=== PATIENT | female | born 1970 | race Caucasian/White ===

== ENCOUNTER → 2016-09-23 | Outpatient (CLI) | payer OTHER ==
[2016-03-31 07:57] VITALS: BP 138/92
[~2016-09-23] MED LIST: BUDE8.6S NS; BUDE8.6S6 NS; CETI10TA16 PO; HYDR-79 PO; MULT-245 PO; OXYC10TA PO; PRED1TAB3 PO
--- NOTE | 2016-09-23 10:33 | RAD ---
Indication restage nasal lymphoma. PET/CT was performed from the skull through the proximal thigh. CT was performed primarily for localization and attenuation purposes as opposed to primary diagnostic purposes. The blood sugar during the examination was 92. 14 mCi of FDG was administered. Note is made of a previous examination 06/24/2016. On CT the visualized brain appears unremarkable. There is significant opacification of the left maxillary sinus sphenoid sinus and mucosal thickening of the right maxillary sinus. Findings are suggestive of sinusitis. Clinical correlation advised. There is some soft tissue swelling of the nose. The chest is unremarkable. Significant hilar or mediastinal adenopathy is not seen on CT. There is no dominant parenchymal mass in either lung. The abdomen and pelvis are unremarkable. On PET scanning there is increased activity in the soft tissues about the nose. Maximum SUV is approximately 5. This may be on a post radiation basis. Recurrent lymphoma however cannot be excluded. The intensity of the uptake is greater than background blood flow uptake. Increased FDG uptake in the left maxillary sinus is likely on an infectious basis. There is now, in contrast to the previous examination, increased metabolic activity in a right hilar lymph node. This is not seen on the CT images. Maximum SUV is approximately 5.9. Metastatic adenopathy is not excluded. Slightly increased FDG activity is noted associated with the right nipple. This has been demonstrated on previous exam. FDG is physiologically distributed in the abdomen and pelvis. IMPRESSION: Increased FDG activity in the soft tissues about the nose may represent recurrent lymphoma or be the sequela of radiation therapy. (The uptake, however, is greater than background blood pool which is concerning for recurrent disease). New FDG avid right hilar lymph node. Metastatic disease is not excluded. Partial opacification of paranasal sinuses suggesting sinusitis.
== END | disposition home or self-care (01) ==
LOC: PETSC 07:16
PROVIDERS: ATTEND Radiology Radiation Oncology
DX: C84.Z0 Other mature T/NK-cell lymphomas, unspecified site (principal)
CPT/HCPCS: 78815; A9552

== ENCOUNTER 2016-12-06 08:21 | Observation (INO) | payer OTHER ==
[~2016-12-06] VITALS: Ht 167.6 cm; Wt 89.9 kg
[2016-12-06] MEDS ORDERED: IV NORMAL SALINE 1000ML BAG 1,000 ML IV SCH (08:50)
--- NOTE | 2016-12-06 08:53 | PHYS DOC ---
Adult General Chief Complaint Chief Complaint: GI PROBLEM HPI HPI Patient is a 46 year old female who presents with abdominal pain. She states it started around 6 AM this morning is sharp stabbing in nature and constant. Nothing makes it better or worse. She denies any nausea or vomiting. She had normal bowel movement this morning Review of Systems Review of Systems Constitutional: Denies fever or chills [] Eyes: Denies change in visual acuity, redness, or eye pain [] HENT: Denies nasal congestion or sore throat [] Respiratory: Denies cough or shortness of breath [] Cardiovascular: No additional information not addressed in HPI [] GI: Denies abdominal pain, nausea, vomiting, bloody stools or diarrhea [] : Denies dysuria or hematuria [] Musculoskeletal: Denies back pain or joint pain [] Integument: Denies rash or skin lesions [] Neurologic: Denies headache, focal weakness or sensory changes [] Endocrine: Denies polyuria or polydipsia [] Current Medications Current Medications Current Medications Medications (Trade) Dose Ordered Sig/Primo Start Time Stop Time Status Last Admin Dose Admin Info (Do NOT chart on this entry -- for MONITORING) 1 each PRN DAILY PRN 12/06/16 10:45 12/08/16 10:44 Iohexol (Omnipaque 300 Mg/ml) 75 ml 1X ONCE 12/06/16 10:45 12/06/16 10:46 DC 12/06/16 10:53 75 ML Morphine Sulfate 4 mg 4 mg PRN Q15MIN PRN 12/06/16 09:00 12/07/16 08:59 12/06/16 09:50 4 MG Multi-Ingredient Mouthwash/Gargle (Gi Cocktail Single Dose) 15 ml 1X ONCE 12/06/16 09:00 12/06/16 09:01 DC 12/06/16 09:00 15 ML Sodium Chloride (Iv Sodium Chloride 0.9% 1000ml Bag) 1,000 ml @ 100 mls/hr Q10H 12/06/16 08:50 12/06/16 18:49 12/06/16 09:48 100 MLS/HR Allergies Allergies Allergies Coded Allergies Type Severity Reaction Last Updated Verified No Known Drug Allergies 02/06/16 No Physical Exam Physical Exam Constitutional: Well developed, well nourished, no acute distress, non-toxic appearance. [] HENT: Normocephalic, atraumatic, bilateral external ears normal, oropharynx moist, no oral exudates, nose normal. [] Eyes: PERRLA, EOMI, conjunctiva normal, no discharge. [] Neck: Normal range of motion, no tenderness, supple, no stridor. [] Cardiovascular:Heart rate regular rhythm, no murmur [] Lungs & Thorax: Bilateral breath sounds clear to auscultation [] Abdomen: Bowel sounds normal, soft, tender to palpation in the epigastric area, no masses, no pulsatile masses. [] Skin: Warm, dry, no erythema, no rash. [] Back: No tenderness, no CVA tenderness. [] Extremities: No tenderness, no cyanosis, no clubbing, ROM intact, no edema. [] Neurologic: Alert and oriented X 3, normal motor function, normal sensory function, no focal deficits noted. [] Psychologic: Affect normal, judgement normal, mood normal. [] Current Patient Data Vital Signs Vital Signs Date Time Temp Pulse Resp B/P Pulse Ox O2 Delivery O2 Flow Rate FiO2 12/06/16 12:35 79 138/78 97 12/06/16 09:50 20 Room Air 12/06/16 08:45 98.3 98.3 Lab Values Laboratory Tests Test 12/06/16 09:34 12/06/16 09:41 White Blood Count 13.2x10^3/uL (4.0-11.0) H Red Blood Count 4.64x10^6/uL (3.50-5.40) Hemoglobin 14.9g/dL (12.0-15.5) Hematocrit 42.8% (36.0-47.0) Mean Corpuscular Volume 92fL (79-100) Mean Corpuscular Hemoglobin 32pg (25-35) Mean Corpuscular Hemoglobin Concent 35g/dL (31-37) Red Cell Distribution Width 13.8% (11.5-14.5) Platelet Count 259x10^3/uL (140-400) Neutrophils (%) (Auto) 88% (31-73) H Lymphocytes (%) (Auto) 6% (24-48) L Monocytes (%) (Auto) 6% (0-9) Eosinophils (%) (Auto) 1% (0-3) Basophils (%) (Auto) 1% (0-3) Neutrophils # (Auto) 11.5x10^3uL (1.8-7.7) H Lymphocytes # (Auto) 0.7x10^3/uL (1.0-4.8) L Monocytes # (Auto) 0.7x10^3/uL (0.0-1.1) Eosinophils # (Auto) 0.1x10^3/uL (0.0-0.7) Basophils # (Auto) 0.1x10^3/uL (0.0-0.2) Segmented Neutrophils % 75% (35-66) H Band Neutrophils % 12% (0-9) H Lymphocytes % 6% (24-48) L Atypical Lymphocytes % (Manual) 1% (0-0) H Monocytes % 6% (0-10) Platelet Estimate Adequate (ADEQUATE) Prothrombin Time 13.1SEC (11.7-14.0) Prothrombin Time INR 1.1 (0.8-1.1) PTT 27SEC (24-38) Sodium Level 140mmol/L (136-145) Potassium Level 3.6mmol/L (3.5-5.1) Chloride Level 102mmol/L (98-107) Carbon Dioxide Level 28mmol/L (21-32) Anion Gap 10 (6-14) Blood Urea Nitrogen 8mg/dL (7-20) Creatinine 0.9mg/dL (0.6-1.0) Estimated GFR (Cockcroft-Gault) 67.7 Glucose Level 108mg/dL (70-99) H Calcium Level 9.1mg/dL (8.5-10.1) Total Bilirubin 0.9mg/dL (0.2-1.0) Direct Bilirubin 0.5mg/dL (0.0-0.2) H Aspartate Amino Transferase (AST) 83U/L (15-37) H Alanine Aminotransferase (ALT) 51U/L (14-59) Alkaline Phosphatase 89U/L (46-116) Creatine Kinase 48U/L (26-192) Creatine Kinase MB (Mass) < 0.5ng/mL (0.0-3.6) Creatine Kinase MB Relative Index % (0-4) Total Protein 7.2g/dL (6.4-8.2) Albumin 3.8g/dL (3.4-5.0) Lipase 179U/L (73-393) Urine Collection Type Void Urine Color Yellow Urine Clarity Clear Urine pH 6.0 Urine Specific [place] 1.020 Urine Protein Negativemg/dL (NEG-TRACE) Urine Glucose (UA) Negativemg/dL (NEG) Urine Ketones (Stick) Negativemg/dL (NEG) Urine Blood Negative (NEG) Urine Nitrite Negative (NEG) Urine Bilirubin Negative (NEG) Urine Urobilinogen Dipstick 1.0mg/dL (0.2 mg/dL) Urine Leukocyte Esterase Negative (NEG) Urine RBC 1-2/HPF (0-2) Urine WBC Rare/HPF (0-4) Urine Squamous Epithelial Cells Mod/LPF Urine Bacteria Few/HPF (0-FEW) Urine Hyaline Casts Few/HPF Urine Mucus Marked/LPF Urine Opiates Screen Pos (NEG) Urine Methadone Screen Neg (NEG) Urine Barbiturates Neg (NEG) Urine Phencyclidine Screen Neg (NEG) Urine Amphetamine/Methamphetamine Neg (NEG) Urine Benzodiazepines Screen Neg (NEG) Urine Cocaine Screen Neg (NEG) Urine Cannabinoids Screen Neg (NEG) Urine Ethyl Alcohol Neg (NEG) Laboratory Tests 12/06/16 09:34 Laboratory Tests 12/06/16 09:34 EKG EKG EKG shows normal sinus rhythm 3-[address] elevations or T-wave inversions, normal axis, as interpreted by me. Radiology/Procedures Radiology/Procedures [facility] [address] [place] [address] IMAGING REPORT Signed PATIENT: NIKKO DE LA TORRE ACCOUNT: [id number] : 1970 LOCATION: ER AGE: 46 SEX: F EXAM STATUS: REG ER ORD. PHYSICIAN: KYRIE MCKENNA MD REASON: abd pain PROCEDURE: ACUTE ABDOMEN SERIES Abdomen series with chest, 3 views, 12/06/2016: History: Upper abdominal pain The abdominal gas pattern is unremarkable without evidence of obstruction. No free air is seen in the abdomen. There is no evidence of organomegaly or abnormal abdominal calcification. Mild scattered spurs are present in the spine. The heart size and pulmonary vascularity are normal. The lungs are clear. There is no evidence of pleural fluid. IMPRESSION: No acute abdominal abnormality is detected. DICTATED and SIGNED BY: TOÑA RODRIGUEZ MD DATE: 12/06/1625 CC: KYRIE MCKENNA MD; CLAUDINE ANDREWS ~ [facility] [address] [place] [address] IMAGING REPORT Signed PATIENT: NIKKO DE LA TORRE ACCOUNT: [id number] : 1970 LOCATION: ER AGE: 46 SEX: F EXAM STATUS: REG ER ORD. PHYSICIAN: KYRIE MCKENNA MD REASON: abd pain PROCEDURE: CT ABD PELV W/ IV CONTRST ONLY CT of the abdomen and pelvis with contrast, 12/06/2016: History: Abdominal pain, nausea and vomiting Multidetector CT imaging was performed following an IV bolus injection of iodinated contrast material. No oral contrast material was administered for this study. No hepatic abnormality is detected. There is low density mural thickening involving the gallbladder. No dense gallstones are seen. The pancreas is unremarkable. The spleen is of normal size. The kidneys show no evidence of obstruction. No adrenal abnormality is detected. There is mild aortoiliac calcific plaquing without evidence of aneurysm. No abdominal or pelvic adenopathy is seen. The uterus is unremarkable. The bowel loops are not dilated. A few scattered colonic diverticula are seen. No paracolonic inflammatory process is evident. The appendix is unremarkable. No free fluid or free air is seen in the abdomen or pelvis. IMPRESSION: 1. Moderate gallbladder mural thickening which can be due to a variety of causes including cholecystitis, hypoproteinemia, liver disease or a renal disease. Gallbladder sonography may be useful for further evaluation. 2. Mild colonic diverticulosis. PQRS Compliance Statement: One or more of the following individualized dose reduction techniques were utilized for this examination: 1. Automated exposure control 2. Adjustment of the mA and/or kV according to patient size 3. Use of iterative reconstruction technique DICTATED and SIGNED BY: TOÑA RODRIGUEZ MD DATE: 12/06/16 113 CC: KYRIE MCKENNA MD; CLAUDINE ANDREWS ~ [facility] [address] [place], [place] [id number] IMAGING REPORT Signed PATIENT: NIKKO DE LA TORRE ACCOUNT: [id number] : 1970 LOCATION: ER AGE: 46 SEX: F EXAM STATUS: REG ER ORD. PHYSICIAN: KYRIE MCKENNA MD REASON: right upper quadrant pain PROCEDURE: ABDOMEN LTD Right upper quadrant abdominal ultrasound, 12/06/2016: History: Right upper quadrant pain The gallbladder is not well distended. There was echogenic foci along the posterior wall of the gallbladder with posterior acoustic shadowing compatible with gallstones. The gallbladder wall is thickened measuring 4-5 mm. The common hepatic duct is of normal size measuring 4 mm. No intrahepatic bile duct dilatation is evident. No hepatic mass is delineated. The visualized portions of the pancreas and right kidney are unremarkable. IMPRESSION: Cholelithiasis with gallbladder wall thickening. This mural thickening can be due to a variety of causes including cholecystitis, hypoproteinemia, liver disease or renal disease. DICTATED and SIGNED BY: TOÑA RODRIGUEZ MD DATE: 12/06/16 1302 CC: KYRIE MCKENNA MD; CLAUDINE ANDREWS ~ Impressions: Abdominal pain Course & Med Decision Making Course & Med Decision Making Pertinent Labs and Imaging studies reviewed. (See chart for details) Patient had pain in the epigastric area in addition to an ultrasound that shows gallbladder wall thickening at 3-4 mm. She does have bands on her CBC she does not have a fever. So Dr. Almonte once Zosyn started. I have placed a consult for surgery and admitted to Dr. Fonseca. Joyce Disclaimer [employer] Disclaimer This electronic medical record was generated, in whole or in part, using a voice recognition dictation system. Departure Departure Impression: Primary Impression: Abdominal pain Disposition: ADMITTED INPATIENT Admitting Physician: Billy Fonseca Condition: STABLE Referrals: CLAUDINE ANDREWS (PCP) KYRIE MCKENNA MD Dec 06, 2016 08:53
[2016-12-06] MEDS ORDERED: LIDO:MAALOX:DONNATAL 1:1:1 15 ML SINGLE DOSE SWSW ONE (09:00)
[2016-12-06] MEDS ORDERED: MORPHINE SULFATE 4 MG/ML DISP.SYRIN. IV/SQ PRN (09:00)
--- NOTE | 2016-12-06 09:29 | RAD ---
Abdomen series with chest, 3 views, 12/06/2016: History: Upper abdominal pain The abdominal gas pattern is unremarkable without evidence of obstruction. No free air is seen in the abdomen. There is no evidence of organomegaly or abnormal abdominal calcification. Mild scattered spurs are present in the spine. The heart size and pulmonary vascularity are normal. The lungs are clear. There is no evidence of pleural fluid. IMPRESSION: No acute abdominal abnormality is detected.
[2016-12-06 10:07] LABS: BASO # 0.1 x10^3/uL (0.0-0.2); BASO % 1 % (0-3); EOS % 1 % (0-3); HEMATOCRIT 42.8 % (36.0-47.0); HEMOGLOBIN 14.9 g/dL (12.0-15.5); LYMPH # 0.7 x10^3/uL (1.0-4.8); LYMPH % 6 % (24-48); MEAN CORPUSCULAR HEMOGLOBIN 32 pg (25-35); MEAN CORPUSCULAR HGB CONC 35 g/dL (31-37); MEAN CORPUSCULAR VOLUME 92 fL (79-100); MONO % 6 % (0-9); NEUT % 88 % (31-73); PLATELET COUNT 259 x10^3/uL (140-400); RED BLOOD COUNT 4.64 x10^6/uL (3.50-5.40); RED CELL DISTRIBUTION WIDTH 13.8 % (11.5-14.5); WHITE BLOOD COUNT 13.2 x10^3/uL (4.0-11.0)
[2016-12-06 10:08] LABS: BILIRUBIN,URINE NEGATIVE (NEG); GLUCOSE,URINE NEGATIVE (NEG); NITRITE,URINE NEGATIVE (NEG); PROTEIN,URINE NEGATIVE (NEG-TRACE)
[2016-12-06 10:14] LABS: INR 1.1 (0.8-1.1); PROTHROMBIN TIME PATIENT 13.1 SEC (11.7-14.0)
[2016-12-06 10:15] LABS: BARBITURATES NEG (NEG); BENZODIAZEPINES NEG (NEG); CANNABINOIDS NEG (NEG); COCAINE NEG (NEG); METHADONE NEG (NEG); OPIATES POS (NEG); PHENCYCLIDINE NEG (NEG)
[2016-12-06 10:18] LABS: CALCIUM 9.1 mg/dL (8.5-10.1); CREATININE 0.9 mg/dL (0.6-1.0); GFR 67.7; POTASSIUM 3.6 mmol/L (3.5-5.1)
[2016-12-06 10:20] LABS: ETHANOL, URINE NEG (NEG)
[2016-12-06 10:21] LABS: BACTERIA,URINE FEW /HPF (0-FEW); SQUAMOUS EPITHELIAL CELL,UR MOD /LPF; WBC,URINE RARE /HPF (0-4)
[2016-12-06 10:24] LABS: ALBUMIN 3.8 g/dL (3.4-5.0); DIRECT BILIRUBIN 0.5 mg/dL (0.0-0.2); TOTAL BILIRUBIN 0.9 mg/dL (0.2-1.0); TOTAL PROTEIN 7.2 g/dL (6.4-8.2)
[2016-12-06 10:35] LABS: CKMB MASS < 0.5 ng/mL (0.0-3.6); CREATINE KINASE 48 U/L (26-192)
[2016-12-06] MEDS ORDERED: IOHEXOL 300 MG/ML 75 ML VIAL IV ONE (10:45)
[2016-12-06] MEDS ORDERED: CONTRAST GIVEN MC PRN (10:45)
--- NOTE | 2016-12-06 10:50 | EKG ---
[facility] [address] [place] [address] Test Date: 2016-12-06 Test Time: 09:14:35 Pat Name: NIKKO DE LA TORRE Department: Room: Gender: F Rating Officer: : 1970 Requested By: KYRIE MCKENNA Order Number: [id number] Reading MD: Boris Braswell Measurements Intervals [place] Rate: 67 P: 0 HI: 152 QRS: 22 QRSD: 100 T: 27 QT: 386 QTc: 411 Interpretive Statements SINUS RHYTHM Electronically Signed On 12-07-2016 15:40:13 CDT by Boris Braswell
[2016-12-06 10:54] LABS: PLT ESTIMATE ADEQUATE (ADEQUATE)
--- NOTE | 2016-12-06 11:40 | RAD ---
CT of the abdomen and pelvis with contrast, 12/06/2016: History: Abdominal pain, nausea and vomiting Multidetector CT imaging was performed following an IV bolus injection of iodinated contrast material. No oral contrast material was administered for this study. No hepatic abnormality is detected. There is low density mural thickening involving the gallbladder. No dense gallstones are seen. The pancreas is unremarkable. The spleen is of normal size. The kidneys show no evidence of obstruction. No adrenal abnormality is detected. There is mild aortoiliac calcific plaquing without evidence of aneurysm. No abdominal or pelvic adenopathy is seen. The uterus is unremarkable. The bowel loops are not dilated. A few scattered colonic diverticula are seen. No paracolonic inflammatory process is evident. The appendix is unremarkable. No free fluid or free air is seen in the abdomen or pelvis. IMPRESSION: 1. Moderate gallbladder mural thickening which can be due to a variety of causes including cholecystitis, hypoproteinemia, liver disease or a renal disease. Gallbladder sonography may be useful for further evaluation. 2. Mild colonic diverticulosis. PQRS Compliance Statement: One or more of the following individualized dose reduction techniques were utilized for this examination: 1. Automated exposure control 2. Adjustment of the mA and/or kV according to patient size 3. Use of iterative reconstruction technique
--- NOTE | 2016-12-06 13:09 | RAD ---
Right upper quadrant abdominal ultrasound, 12/06/2016: History: Right upper quadrant pain The gallbladder is not well distended. There was echogenic foci along the posterior wall of the gallbladder with posterior acoustic shadowing compatible with gallstones. The gallbladder wall is thickened measuring 4-5 mm. The common hepatic duct is of normal size measuring 4 mm. No intrahepatic bile duct dilatation is evident. No hepatic mass is delineated. The visualized portions of the pancreas and right kidney are unremarkable. IMPRESSION: Cholelithiasis with gallbladder wall thickening. This mural thickening can be due to a variety of causes including cholecystitis, hypoproteinemia, liver disease or renal disease.
[2016-12-06] MEDS ORDERED: MORPHINE SULFATE 4 MG/ML DISP.SYRIN. IV PRN (14:00)
[2016-12-06] MEDS ORDERED: PIPERACILLIN/TAZOBACTAM 3.375 GM in IV NORMAL SALINE 50ML 50 ML IV ONE (14:00)
[2016-12-06] MEDS ORDERED: ONDANSETRON PF 4 MG/2 ML VIAL. IV PRN (14:00)
--- NOTE | 2016-12-06 14:25 | PDOC2 ---
LAI GARCIA BUSINESS ACCOUNT MANAGER 12/06/16 1425: CONSULT Date of Consult Date of Consult DATE: 12/06/16 TIME: 14:19 Reason for Consult Reason for Consult: abdominal pain Referring Physician Referring Physician: ER Identification/Chief Complaint Chief Complaint abdominal pain Source Source: Chart review, Patient History of Present Illness Reason for Visit: Acute onset of RUQ pain with radiation to back starting this morning. She had similar pain about a week ago, however resolved in about a day. No aggravated factors, does not feel related to eating(had BLT for dinner last night). Currently pain is greatly improved, no associated nausea or emesis She is very hungry Past Medical History Past Medical History denies any medical history Past Surgical History Past Surgical History: Other (sinus) Social History 1 pack per day ALCOHOL: rare Drugs: None Lives: Alone Current Problem List Problem List Problems Medical Problems: (1) Abdominal pain Status: Acute Current Medications Current Medications Current Medications Multi-Ingredient Mouthwash/Gargle (Gi Cocktail Single Dose) 15 ml 1X ONCE SWSW Last administered on 12/06/16 09:00; Start 12/06/16 at 09:00; Stop 12/06/16 at 09:01; Status DC Morphine Sulfate 4 mg 4 mg PRN Q15MIN PRN IV/SQ PAIN GREATER THAN 3/10 Last administered on 12/06/16 09:50; Start 12/06/16 at 09:00; Stop 12/07/16 at 08:59 Sodium Chloride (Iv Sodium Chloride 0.9% 1000ml Bag) 1,000 ml @ 100 mls/hr Q10H IV Last administered on 12/06/16 09:48; Start 12/06/16 at 08:50; Stop at 18:49 Iohexol (Omnipaque 300 Mg/ml) 75 ml 1X ONCE IV Last administered on 12/06/16 10:53; Start 12/06/16 at 10:45; Stop 12/06/16 at 10:46; Status DC Info (Do NOT chart on this entry -- for MONITORING) 1 each PRN DAILY PRN MC SEE COMMENTS; Start 12/06/16 at 10:45; Stop 12/08/16 at 10:44 Ondansetron HCl (Zofran) 4 mg PRN Q8HRS PRN IV NAUSEA/VOMITING; Start 12/06/16 at 14:00; Stop 12/07/16 at 13:59 Morphine Sulfate 4 mg 4 mg PRN Q2HR PRN IV PAIN; Start 12/06/16 at 14:00; Stop 12/07/16 at 13:59 Piperacillin Sod/ Tazobactam Sod/ Sodium Chloride (Zosyn/Iv Sodium Chloride 0.9 % 50ml) 50 ml @ 100 mls/hr 1X ONCE IV ; Start 12/06/16 at 14:00; Stop at 14:29 Active Scripts Active Oxycodone Hcl 10 Mg Tablet 10 Mg PO EVERY 6 HRS PRN Reported Hydrocodone-Ibuprofen 7.5-200 (Hydrocodone/Ibuprofen) 1 Each Tablet 1 Tab PO PRN Q6HRS PRN Budesonide Nasal Dilley (Budesonide) 8.6 Gm Dilley.pump 1 Dilley NS QODAY Multi Vitamin Daily (Multivitamin) 1 Each Tablet 1 Each PO DAILY Allergies Allergies: Coded Allergies: No Known Drug Allergies (Unverified , 02/06/16) ROS General: No: Chills, Other (fevers) PSYCHOLOGICAL ROS: No: Anxiety, Depression Eyes: No Blurry vision, No Double vision HEENT: No: Heacaches, Sore Throat Hematological and Lymphatic: No: Bleeding Problems, Blood Clots Respiratory: No: Cough, Shortness of breath Cardiovascular: No Chest Pain, No Palpitations Gastrointestinal: Yes Other (see hpi) Genitourinary: No Dysuria, No Hematuria Musculoskeletal: No Joint Pain, No Muscle Pain Neurological: No Confusion, No Numbness/Tingling Skin: No Pruritus, No Rash Physical Exam General: Alert, Oriented X3, Cooperative, No acute distress HEENT: PERRLA, Mucous membr. moist/pink Lungs: Clear to auscultation, Normal air movement Heart: Regular rate, Normal S1, Normal S2, No murmurs Abdomen: Soft, Other (ND, mild tenderness to RUQ, epigastric) Extremities: No clubbing, No cyanosis Skin: No rashes, No breakdown Neuro: Normal speech, Sensation intact Psych/Mental Status: Mental status NL, Mood NL MUSCULOSKELETAL: No deformity, No swelling Vitals VITALS Vital Signs Date Time Temp Pulse Resp B/P Pulse Ox O2 Delivery O2 Flow Rate FiO2 12/06/16 12:35 79 138/78 97 12/06/16 09:50 20 Room Air 12/06/16 08:45 98.3 98.3 Labs Labs Laboratory Tests Test 12/06/16 09:34 12/06/16 09:41 White Blood Count 13.2x10^3/uL (4.0-11.0) Red Blood Count 4.64x10^6/uL (3.50-5.40) Hemoglobin 14.9g/dL (12.0-15.5) Hematocrit 42.8% (36.0-47.0) Mean Corpuscular Volume 92fL (79-100) Mean Corpuscular Hemoglobin 32pg (25-35) Mean Corpuscular Hemoglobin Concent 35g/dL (31-37) Red Cell Distribution Width 13.8% (11.5-14.5) Platelet Count 259x10^3/uL (140-400) Neutrophils (%) (Auto) 88% (31-73) Lymphocytes (%) (Auto) 6% (24-48) Monocytes (%) (Auto) 6% (0-9) Eosinophils (%) (Auto) 1% (0-3) Basophils (%) (Auto) 1% (0-3) Neutrophils # (Auto) 11.5x10^3uL (1.8-7.7) Lymphocytes # (Auto) 0.7x10^3/uL (1.0-4.8) Monocytes # (Auto) 0.7x10^3/uL (0.0-1.1) Eosinophils # (Auto) 0.1x10^3/uL (0.0-0.7) Basophils # (Auto) 0.1x10^3/uL (0.0-0.2) Segmented Neutrophils % 75% (35-66) Band Neutrophils % 12% (0-9) Lymphocytes % 6% (24-48) Atypical Lymphocytes % (Manual) 1% (0-0) Monocytes % 6% (0-10) Platelet Estimate Adequate (ADEQUATE) Prothrombin Time 13.1SEC (11.7-14.0) Prothromb Time International Ratio 1.1 (0.8-1.1) Activated Partial Thromboplast Time 27SEC (24-38) Sodium Level 140mmol/L (136-145) Potassium Level 3.6mmol/L (3.5-5.1) Chloride Level 102mmol/L (98-107) Carbon Dioxide Level 28mmol/L (21-32) Anion Gap 10 (6-14) Blood Urea Nitrogen 8mg/dL (7-20) Creatinine 0.9mg/dL (0.6-1.0) Estimated GFR (Cockcroft-Gault) 67.7 Glucose Level 108mg/dL (70-99) Calcium Level 9.1mg/dL (8.5-10.1) Total Bilirubin 0.9mg/dL (0.2-1.0) Direct Bilirubin 0.5mg/dL (0.0-0.2) Aspartate Amino Transf (AST/SGOT) 83U/L (15-37) Alanine Aminotransferase (ALT/SGPT) 51U/L (14-59) Alkaline Phosphatase 89U/L (46-116) Creatine Kinase 48U/L (26-192) Creatine Kinase MB (Mass) < 0.5ng/mL (0.0-3.6) Creatine Kinase MB Relative Index % (0-4) Total Protein 7.2g/dL (6.4-8.2) Albumin 3.8g/dL (3.4-5.0) Lipase 179U/L (73-393) Urine Collection Type Void Urine Color Yellow Urine Clarity Clear Urine pH 6.0 Urine Specific [place] 1.020 Urine Protein Negativemg/dL (NEG-TRACE) Urine Glucose (UA) Negativemg/dL (NEG) Urine Ketones (Stick) Negativemg/dL (NEG) Urine Blood Negative (NEG) Urine Nitrite Negative (NEG) Urine Bilirubin Negative (NEG) Urine Urobilinogen Dipstick 1.0mg/dL (0.2 mg/dL) Urine Leukocyte Esterase Negative (NEG) Urine RBC 1-2/HPF (0-2) Urine WBC Rare/HPF (0-4) Urine Squamous Epithelial Cells Mod/LPF Urine Bacteria Few/HPF (0-FEW) Urine Hyaline Casts Few/HPF Urine Mucus Marked/LPF Urine Opiates Screen Pos (NEG) Urine Methadone Screen Neg (NEG) Urine Barbiturates Neg (NEG) Urine Phencyclidine Screen Neg (NEG) Urine Amphetamine/Methamphetamine Neg (NEG) Urine Benzodiazepines Screen Neg (NEG) Urine Cocaine Screen Neg (NEG) Urine Cannabinoids Screen Neg (NEG) Urine Ethyl Alcohol Neg (NEG) Laboratory Tests Test 12/06/16 09:34 12/06/16 09:41 White Blood Count 13.2x10^3/uL (4.0-11.0) Red Blood Count 4.64x10^6/uL (3.50-5.40) Hemoglobin 14.9g/dL (12.0-15.5) Hematocrit 42.8% (36.0-47.0) Mean Corpuscular Volume 92fL (79-100) Mean Corpuscular Hemoglobin 32pg (25-35) Mean Corpuscular Hemoglobin Concent 35g/dL (31-37) Red Cell Distribution Width 13.8% (11.5-14.5) Platelet Count 259x10^3/uL (140-400) Neutrophils (%) (Auto) 88% (31-73) Lymphocytes (%) (Auto) 6% (24-48) Monocytes (%) (Auto) 6% (0-9) Eosinophils (%) (Auto) 1% (0-3) Basophils (%) (Auto) 1% (0-3) Neutrophils # (Auto) 11.5x10^3uL (1.8-7.7) Lymphocytes # (Auto) 0.7x10^3/uL (1.0-4.8) Monocytes # (Auto) 0.7x10^3/uL (0.0-1.1) Eosinophils # (Auto) 0.1x10^3/uL (0.0-0.7) Basophils # (Auto) 0.1x10^3/uL (0.0-0.2) Segmented Neutrophils % 75% (35-66) Band Neutrophils % 12% (0-9) Lymphocytes % 6% (24-48) Atypical Lymphocytes % (Manual) 1% (0-0) Monocytes % 6% (0-10) Platelet Estimate Adequate (ADEQUATE) Prothrombin Time 13.1SEC (11.7-14.0) Prothromb Time International Ratio 1.1 (0.8-1.1) Activated Partial Thromboplast Time 27SEC (24-38) Sodium Level 140mmol/L (136-145) Potassium Level 3.6mmol/L (3.5-5.1) Chloride Level 102mmol/L (98-107) Carbon Dioxide Level 28mmol/L (21-32) Anion Gap 10 (6-14) Blood Urea Nitrogen 8mg/dL (7-20) Creatinine 0.9mg/dL (0.6-1.0) Estimated GFR (Cockcroft-Gault) 67.7 Glucose Level 108mg/dL (70-99) Calcium Level 9.1mg/dL (8.5-10.1) Total Bilirubin 0.9mg/dL (0.2-1.0) Direct Bilirubin 0.5mg/dL (0.0-0.2) Aspartate Amino Transf (AST/SGOT) 83U/L (15-37) Alanine Aminotransferase (ALT/SGPT) 51U/L (14-59) Alkaline Phosphatase 89U/L (46-116) Creatine Kinase 48U/L (26-192) Creatine Kinase MB (Mass) < 0.5ng/mL (0.0-3.6) Creatine Kinase MB Relative Index % (0-4) Total Protein 7.2g/dL (6.4-8.2) Albumin 3.8g/dL (3.4-5.0) Lipase 179U/L (73-393) Urine Collection Type Void Urine Color Yellow Urine Clarity Clear Urine pH 6.0 Urine Specific [place] 1.020 Urine Protein Negativemg/dL (NEG-TRACE) Urine Glucose (UA) Negativemg/dL (NEG) Urine Ketones (Stick) Negativemg/dL (NEG) Urine Blood Negative (NEG) Urine Nitrite Negative (NEG) Urine Bilirubin Negative (NEG) Urine Urobilinogen Dipstick 1.0mg/dL (0.2 mg/dL) Urine Leukocyte Esterase Negative (NEG) Urine RBC 1-2/HPF (0-2) Urine WBC Rare/HPF (0-4) Urine Squamous Epithelial Cells Mod/LPF Urine Bacteria Few/HPF (0-FEW) Urine Hyaline Casts Few/HPF Urine Mucus Marked/LPF Urine Opiates Screen Pos (NEG) Urine Methadone Screen Neg (NEG) Urine Barbiturates Neg (NEG) Urine Phencyclidine Screen Neg (NEG) Urine Amphetamine/Methamphetamine Neg (NEG) Urine Benzodiazepines Screen Neg (NEG) Urine Cocaine Screen Neg (NEG) Urine Cannabinoids Screen Neg (NEG) Urine Ethyl Alcohol Neg (NEG) Assessment/Plan Assessment/Plan cholelithiasis with mural thickening, leukocytosis-c/w cholecystitis tobaccoism obesity, BMI 32.9 agree with abx will plan for lap isidra in AM, can try anthony, npo at [place] PRABHU HENRY MD 12/06/16 2313: CONSULT Allergies Allergies: Coded Allergies: No Known Drug Allergies (Unverified , 02/06/16) Assessment/Plan Assessment/Plan Reviewed, agree with above LAI GARCIA APRN Dec 06, 2016 14:25 PRABHU HENRY MD Dec 06, 2016 23:13
--- NOTE | 2016-12-06 14:50 | ACF ---
Admission Forms Criteria ABDOMINAL PAIN Clinical Indications for Admission to Inpatient Care (Place 'X' for any and all applicable criteria): Admission is indicated for ANY ONE of the following(1)(2)(3)(4)(5): [X]I. Inpatient admission required rather than observation care (Also use Abdominal Pain: Observation Care, as appropriate) because of ANY ONE of the following: [X]a) Severe pain requiring acute inpatient management [ ]b) Identification of etiology/finding that requires inpatient care (eg, aortic dissection, free air) [ ]c) Absent bowel sounds with complete ileus(6) [ ]d) Suspected toxic megacolon [ ]e) Severe electrolyte abnormalities requiring inpatient care [ ]f) High fever or infection requiring inpatient admission as indicated by ANY ONE of following(7)(8): [ ] i) Appropriate outpatient or observational care antimicrobial treatment unavailable, not effective, or not feasible [ ] ii) Documented bacteremia [ ] iii) Temperature > 104.9 degrees F (oral) [ ] iv) T >103.1 F (oral) or < 96.8 F(rectal) that does not respond to all emergency treatment measures [ ]g) Signs of intestinal obstruction [B] [ ]h) Hemodynamic instability [ ]i) IV fluid to replace significant ongoing losses (greater than 3 L/m2 per day) (12)(13) [ ]j) Percutaneous or open drainage (eg, abscess, biliary tract ) procedures [ ]k) Parenteral nutrition regimen that must be implemented on inpatient basis [ ]l) Other condition,treatment or monitoring requiring inpatient admission. [ ]II. Peritoneal signs present [ ]III. Surgery needed that cannot be performed on an ambulatory basis. [ ]IV. Evaluation requires patient to not eat or drink for extended period ( eg, more than 24 hours). [ ]V. Contraindications and/or Inappropriate clinical situations for Observational Care in patients with abdominal pain, when ANY ONE of the following is required: [ ]a) Thorough evaluation is required to prevent catastrophic events due to delays in diagnosing (e.g.Mesenteric ischemia) 1,3 [ ]b) Patient with severe pathology or with chronic symptoms unlikely to improve in the ED stay (3) [ ]. General contraindications and/or Inappropriate clinical situations for Observational Care in patients with abdominal pain, when ANY ONE of the following is required: [ ]a) Prediction of prolongation of LOS based on ANY ONE of the following may be considered as a contraindication for observational care 2, 3, 4, 5, 6, 7, 8, 9, 10, 11 [ ]i) Age > 65 yrs. [ ]ii) Patient arriving by ambulance [ ]iii) Patient with high acuity [ ]iv) Patient requiring vital sign monitoring [ ]v) Patient on IV medication [ ]b) Systolic blood pressures 180mmHg 3,12 [ ]c) Patient with altered mental status including delirium and other alteration of consciousness, (3) [ ]d) Patient whose discharge disposition will be to a intermediate home or rehabilitation home should not be managed in Emergency Department Observation Unit. CMS rule requires 3 days hospital stay before such placement.3,13 [ ]e) Patient with failure to thrive due to broad array of etiologies 3,16,17 [ ]f) Inability to ambulate 3,14 Extended stay beyond goal length of stay may be needed for(2)(3): [ ]a) Persistent abdominal pain with suspected intra-abdominal process [ ]b) Diagnosed condition requiring continued stay (e.g., pancreatitis, complicated diverticulitis) [ ]c) Surgery (e.g., colectomy) The original [email or web address] content created by [employer] has been revised. The portions of the content which have been revised are identified through the use of italic text or in bold, and [facility] [employer] [facility] has neither reviewed nor approved the modified material.All other unmodified content is copyright [employer]. Please see references footnoted in the original [email or web address] edition 2016 Admission Criteria Met?: Yes ROXANA AGUILAR Dec 06, 2016 14:50
[2016-12-06 15:52] VITALS: BP 140/77
--- NOTE | 2016-12-06 18:33 | HP ---
ADMIT DATE: 12/06/2016 CHIEF COMPLAINT: Gallbladder pain. HISTORY OF PRESENT ILLNESS: The patient is a pleasant 46-year-old female who has known gallbladder disease. Basically, her pain is worsening. We did some imaging here thickening gallbladder. Her white count has also shown left shift. She has some bands. I have discussed the case with the ER physician. We are going to admit the patient and consult GI and General Surgery. PAST MEDICAL HISTORY: Chronic gallbladder pain. ALLERGIES: None. FAMILY HISTORY: Hypertension. SOCIAL HISTORY: She does not drink, smoke or take drugs. MEDICATIONS: Reviewed, please refer to the MRAD. REVIEW OF SYSTEMS: GENERAL: No history of weight change, weakness or fevers. SKIN: No bruising, hair changes or rashes. EYES: No blurred, double or loss of vision. NOSE AND THROAT: No history of nosebleeds, hoarseness or sore throat. HEART: No history of palpitations, chest pain or shortness of breath on exertion. LUNGS: Denies cough, hemoptysis, wheezing or shortness of breath. GASTROINTESTINAL: Denies changes in appetite, nausea, vomiting, diarrhea or constipation. GENITOURINARY: No history of frequency, urgency, hesitancy or nocturia. NEUROLOGIC: Denies history of numbness, tingling, tremor or weakness. PSYCHIATRIC: No history of panic, anxiety or depression. ENDOCRINE: No history of heat or cold intolerance, polyuria or polydipsia. EXTREMITIES: Denies muscle weakness, joint pain, pain on walking or stiffness. Denies right upper quadrant pain. PHYSICAL EXAMINATION: VITAL SIGNS: Temperature afebrile, pulse 62, respirations 18, blood pressure 144/90. GENERAL: She is alert, cooperative. HEART: Normal S1, S2. LUNGS: Clear. ABDOMEN: Soft, positive bowel sounds. EXTREMITIES: No edema. SKIN: No rashes. PSYCHIATRIC: She is stable, a little anxious. VASCULAR: Good capillary refill. LABORATORY DATA: Pending. ASSESSMENT AND PLAN: Probable acute on chronic gallbladder disease with left shift, suspect possible cholecystitis. The patient has been ____ IV antibiotics. Consult GI, consult General Surgery, IV fluids, p.r.n. narcotics. Continue home medicines. GORDY MARTINI DO DR: ZULEYMA/kevan JOB#: [id number] / [id number]
[2016-12-06 19:00] VITALS: BP 122/81
[2016-12-06] MEDS ORDERED: CYCL10TA2 PO (19:58)
[2016-12-06 22:30] VITALS: BP 111/65
[2016-12-07] VITALS (10 sets, daily range): BP systolic 111–141; BP diastolic 62–83
[2016-12-07] MEDS: PIPERACILLIN/TAZOBACTAM 3.375 GM in IV NORMAL SALINE 50ML 50 ML IV SCH ×4 (02:40→16:56)
[2016-12-07 05:08] LABS: BASO % 1 % (0-3); EOS % 2 % (0-3); HEMATOCRIT 40.8 % (36.0-47.0); HEMOGLOBIN 13.8 g/dL (12.0-15.5); LYMPH # 0.7 x10^3/uL (1.0-4.8); LYMPH % 13 % (24-48); MEAN CORPUSCULAR HEMOGLOBIN 32 pg (25-35); MEAN CORPUSCULAR HGB CONC 34 g/dL (31-37); MEAN CORPUSCULAR VOLUME 95 fL (79-100); MONO % 7 % (0-9); NEUT % 77 % (31-73); PLATELET COUNT 231 x10^3/uL (140-400); RED BLOOD COUNT 4.32 x10^6/uL (3.50-5.40); WHITE BLOOD COUNT 5.6 x10^3/uL (4.0-11.0)
[2016-12-07 05:33] LABS: ALBUMIN 3.4 g/dL (3.4-5.0); ALBUMIN/GLOBULIN RATIO 1.1 (1.0-1.7); CALCIUM 8.9 mg/dL (8.5-10.1); CREATININE 0.9 mg/dL (0.6-1.0); GFR 67.7; TOTAL BILIRUBIN 1.2 mg/dL (0.2-1.0); TOTAL PROTEIN 6.5 g/dL (6.4-8.2)
[2016-12-07] MEDS ORDERED: LIDOCAINE 1% 1 ML SYRINGE. ID PRN (07:00)
[2016-12-07] MEDS ORDERED: ONDANSETRON PF 4 MG/2 ML VIAL. IV PRN (07:00)
[2016-12-07] MEDS ORDERED: HYDROmorphone 2 MG/ML VIAL IV PRN (07:00)
[2016-12-07] MEDS ORDERED: FENTANYL PF 100 MCG/2 ML VIAL. IV PRN (07:00)
[2016-12-07] MEDS ORDERED: MORPHINE SULFATE 2 MG/ML DISP.SYRIN. IV PRN (07:00)
[2016-12-07] MEDS ORDERED: PROCHLORPERAZINE 10 MG/2 ML VIAL. IV PRN (07:00)
[2016-12-07] MEDS ORDERED: DEXAMETHASONE SOD PHOS 20 MG/5 ML VIAL. ONE (11:14)
[2016-12-07] MEDS ORDERED: MIDAZOLAM HCL/PF 2 MG/2 ML VIAL. ONE (11:14)
[2016-12-07] MEDS ORDERED: LIDOCAINE 2% 100 MG/5 ML SYRINGE. ONE (11:14)
[2016-12-07] MEDS ORDERED: ONDANSETRON PF 4 MG/2 ML VIAL. ONE (11:14)
[2016-12-07] MEDS ORDERED: PROPOFOL 20 ML IV ONE ×2 (11:14→13:06)
[2016-12-07] MEDS ORDERED: FENTANYL PF 100 MCG/2 ML VIAL. ONE ×2 (11:14→12:32)
[2016-12-07] MEDS ORDERED: ROCURONIUM 50 MG/5 ML VIAL. ONE (11:15)
[2016-12-07] MEDS ORDERED: FAMOTIDINE 20 MG/2 ML VIAL ONE (11:15)
[2016-12-07] MEDS: IV RINGERS,LACTATED 1000ML 1,000 ML IV SCH ×2 (11:40→13:56)
[2016-12-07] MEDS ORDERED: SURGICEL HEMOSTAT 4X8 EACH. ONE (11:48)
[2016-12-07] MEDS ORDERED: IOHEXOL 300 MG/ML 50 ML VIAL. ONE (11:48)
[2016-12-07] MEDS ORDERED: BUPIVACAINE-EPI 0.5%-1:200000 50 ML VIAL. ONE (11:48)
[2016-12-07] MEDS ORDERED: NEOSTIGMINE METHYLSULFATE 5 MG/5 ML SYRINGE. ONE (13:00)
[2016-12-07] MEDS ORDERED: GLYCOPYRROLATE 1 MG/5 ML VIAL. ONE (13:00)
[2016-12-07] MEDS ORDERED: KETOROLAC 60 MG/2 ML INJ FOR OR. ONE (13:00)
--- NOTE | 2016-12-07 13:09 | RAD ---
Intraoperative cholangiogram History: Cholecystectomy. Procedure: A total of 6 fluoroscopic images of the right upper quadrant were obtained. The cystic duct was cannulated with surgeon and contrast was injected. Total fluoroscopic time was 0.6 minutes. Findings: There is opacification of the intrahepatic and extrahepatic biliary ducts. Common bile duct appears at the upper limits of normal for size. No obstructing filling defect to suggest choledocholithiasis is identified. Impression: No evidence of choledocholithiasis.
[2016-12-07] MEDS ORDERED: DESFLURANE 61 TO 120 MINUTES IH ONE (13:19)
--- NOTE | 2016-12-07 13:28 | PDOC4 ---
Operative Note Operative Note Operative Note: Preoperative Diagnosis: Acute cholecystitis Postoperative Diagnosis: Same Procedure: Laparoscopic cholecystectomy with intraoperative cholangiogram Surgeons: Gage Anesthesia: GenBecca Estimated Blood Loss: 10 mL Specimen: Gallbladder to pathology Drains: None Complications: None Indications: The patient is a 46 year old female who was admitted to the hospital with right upper quadrant pain. Her evaluation was consistent with cholecystitis. Surgical treatment was offered by means of a laparoscopic cholecystectomy. The risks of surgery were discussed which include bleeding, infection, bile duct injury, bile leak, pain, the potential for additional surgeries or procedures. The patient understands and would like to proceed. Description: The patient was taken to the operating room and laid supine on the operating table. General anesthesia was performed. The abdomen was prepped with ChloraPrep and draped in a standard surgical fashion. A small infraumbilical incision was made with a scalpel. The Veress needle was then inserted and a pneumoperitoneum was then created. A 5 mm trocar was then inserted and the laparoscope was introduced. In the upper midabdomen a 5 mm trocar was inserted and in the right upper quadrant two 2.3 mm mini lap graspers were inserted. The gallbladder appeared thick walled with edema of the wall consistent with cholecystitis. The gallbladder was retracted cephalad. The cystic duct was dissected free from surrounding tissues. One clip was placed on the duct near the gallbladder junction. An opening was made in the duct and a cholangiocatheter placed within and secured with a clip. Using contrast dye and fluoroscopy an intraoperative cholangiogram was performed that appeared unremarkable. The clip and catheter were then withdrawn. Three clips were placed on the cystic duct and it was divided. The cystic artery was then identified, dissected free, doubly clipped and divided as well. The gallbladder was then mobilized away from the liver with cautery. The umbilical 5 millimeter trocar was exchanged for an 11 millimeter trocar. The gallbladder was then placed in an endoscopic bag and extracted at the umbilical trocar site. The fascia there was closed with an 0 Vicryl suture. All blood and irrigation fluid was suctioned and hemostasis was good. The remaining ports were removed and the pneumoperitoneum was relieved. The skin incisions were injected with half percent Marcaine with epinephrine, and all were closed using 4-0 Monocryl suture. Steri-Strips and dressings were then applied. The patient tolerated the procedure well and was sent to the recovery room in stable condition. At the end of the case all counts were correct. PRABHU HENRY MD Dec 07, 2016 13:28
[2016-12-07] MEDS: FENTANYL PF 100 MCG/2 ML VIAL. IV PRN ×2 (14:05→14:21)
[2016-12-07] MEDS: OXYCODONE/APAP 5/325 TABLET. PO PRN ×2 (17:06→19:22)
--- NOTE | 2016-12-07 22:49 | PDOC ---
PROGRESS NOTES Chief Complaint Chief Complaint cc: RUQ PAIN A/P Cholecystitis s/p Laparoscopic cholecystectomy Abdominal pain due to above Plan Pt seen after surgery, clinically doing better Pain control Monitor LFT Advance diet as tolerated. supportive care Anticipated DC in am If asymptomatic. Vitals Vitals Vital Signs Date Time Temp Pulse Resp B/P Pulse Ox O2 Delivery O2 Flow Rate FiO2 12/07/16 20:25 Room Air 12/07/16 19:00 97.6 60 16 122/74 96 97.6 12/07/16 18:06 10.0 Physical Exam General: Alert, Oriented X3, Cooperative, No acute distress Heart: Regular rate, Normal S1, Normal S2, No murmurs Lungs: Clear Abdomen: Soft, Other (ND, mild tenderness to RUQ, epigastric) Extremities: No clubbing, No cyanosis Skin: No rashes, No breakdown Labs LABS Laboratory Tests Test 12/07/16 04:30 White Blood Count 5.6x10^3/uL (4.0-11.0) Red Blood Count 4.32x10^6/uL (3.50-5.40) Hemoglobin 13.8g/dL (12.0-15.5) Hematocrit 40.8% (36.0-47.0) Mean Corpuscular Volume 95fL (79-100) Mean Corpuscular Hemoglobin 32pg (25-35) Mean Corpuscular Hemoglobin Concent 34g/dL (31-37) Red Cell Distribution Width 14.0% (11.5-14.5) Platelet Count 231x10^3/uL (140-400) Neutrophils (%) (Auto) 77% (31-73) Lymphocytes (%) (Auto) 13% (24-48) Monocytes (%) (Auto) 7% (0-9) Eosinophils (%) (Auto) 2% (0-3) Basophils (%) (Auto) 1% (0-3) Neutrophils # (Auto) 4.3x10^3uL (1.8-7.7) Lymphocytes # (Auto) 0.7x10^3/uL (1.0-4.8) Monocytes # (Auto) 0.4x10^3/uL (0.0-1.1) Eosinophils # (Auto) 0.1x10^3/uL (0.0-0.7) Basophils # (Auto) 0.0x10^3/uL (0.0-0.2) Sodium Level 142mmol/L (136-145) Potassium Level 4.0mmol/L (3.5-5.1) Chloride Level 105mmol/L (98-107) Carbon Dioxide Level 29mmol/L (21-32) Anion Gap 8 (6-14) Blood Urea Nitrogen 5mg/dL (7-20) Creatinine 0.9mg/dL (0.6-1.0) Estimated GFR (Cockcroft-Gault) 67.7 BUN/Creatinine Ratio 6 (6-20) Glucose Level 89mg/dL (70-99) Calcium Level 8.9mg/dL (8.5-10.1) Total Bilirubin 1.2mg/dL (0.2-1.0) Aspartate Amino Transf (AST/SGOT) 106U/L (15-37) Alanine Aminotransferase (ALT/SGPT) 140U/L (14-59) Alkaline Phosphatase 106U/L (46-116) Total Protein 6.5g/dL (6.4-8.2) Albumin 3.4g/dL (3.4-5.0) Albumin/Globulin Ratio 1.1 (1.0-1.7) Assessment and Plan Assessmemt and Plan Problems Medical Problems: (1) Abdominal pain Status: Acute Problems: Comment Review of Relevant I have reviewed the following items rena (where applicable) has been applied. Labs Laboratory Tests Test 12/06/16 09:34 12/06/16 09:41 12/07/16 04:30 White Blood Count 13.2x10^3/uL (4.0-11.0) 5.6x10^3/uL (4.0-11.0) Red Blood Count 4.64x10^6/uL (3.50-5.40) 4.32x10^6/uL (3.50-5.40) Hemoglobin 14.9g/dL (12.0-15.5) 13.8g/dL (12.0-15.5) Hematocrit 42.8% (36.0-47.0) 40.8% (36.0-47.0) Mean Corpuscular Volume 92fL (79-100) 95fL (79-100) Mean Corpuscular Hemoglobin 32pg (25-35) 32pg (25-35) Mean Corpuscular Hemoglobin Concent 35g/dL (31-37) 34g/dL (31-37) Red Cell Distribution Width 13.8% (11.5-14.5) 14.0% (11.5-14.5) Platelet Count 259x10^3/uL (140-400) 231x10^3/uL (140-400) Neutrophils (%) (Auto) 88% (31-73) 77% (31-73) Lymphocytes (%) (Auto) 6% (24-48) 13% (24-48) Monocytes (%) (Auto) 6% (0-9) 7% (0-9) Eosinophils (%) (Auto) 1% (0-3) 2% (0-3) Basophils (%) (Auto) 1% (0-3) 1% (0-3) Neutrophils # (Auto) 11.5x10^3uL (1.8-7.7) 4.3x10^3uL (1.8-7.7) Lymphocytes # (Auto) 0.7x10^3/uL (1.0-4.8) 0.7x10^3/uL (1.0-4.8) Monocytes # (Auto) 0.7x10^3/uL (0.0-1.1) 0.4x10^3/uL (0.0-1.1) Eosinophils # (Auto) 0.1x10^3/uL (0.0-0.7) 0.1x10^3/uL (0.0-0.7) Basophils # (Auto) 0.1x10^3/uL (0.0-0.2) 0.0x10^3/uL (0.0-0.2) Segmented Neutrophils % 75% (35-66) Band Neutrophils % 12% (0-9) Lymphocytes % 6% (24-48) Atypical Lymphocytes % (Manual) 1% (0-0) Monocytes % 6% (0-10) Platelet Estimate Adequate (ADEQUATE) Prothrombin Time 13.1SEC (11.7-14.0) Prothromb Time International Ratio 1.1 (0.8-1.1) Activated Partial Thromboplast Time 27SEC (24-38) Sodium Level 140mmol/L (136-145) 142mmol/L (136-145) Potassium Level 3.6mmol/L (3.5-5.1) 4.0mmol/L (3.5-5.1) Chloride Level 102mmol/L (98-107) 105mmol/L (98-107) Carbon Dioxide Level 28mmol/L (21-32) 29mmol/L (21-32) Anion Gap 10 (6-14) 8 (6-14) Blood Urea Nitrogen 8mg/dL (7-20) 5mg/dL (7-20) Creatinine 0.9mg/dL (0.6-1.0) 0.9mg/dL (0.6-1.0) Estimated GFR (Cockcroft-Gault) 67.7 67.7 Glucose Level 108mg/dL (70-99) 89mg/dL (70-99) Calcium Level 9.1mg/dL (8.5-10.1) 8.9mg/dL (8.5-10.1) Total Bilirubin 0.9mg/dL (0.2-1.0) 1.2mg/dL (0.2-1.0) Direct Bilirubin 0.5mg/dL (0.0-0.2) Aspartate Amino Transf (AST/SGOT) 83U/L (15-37) 106U/L (15-37) Alanine Aminotransferase (ALT/SGPT) 51U/L (14-59) 140U/L (14-59) Alkaline Phosphatase 89U/L (46-116) 106U/L (46-116) Creatine Kinase 48U/L (26-192) Creatine Kinase MB (Mass) < 0.5ng/mL (0.0-3.6) Creatine Kinase MB Relative Index % (0-4) Total Protein 7.2g/dL (6.4-8.2) 6.5g/dL (6.4-8.2) Albumin 3.8g/dL (3.4-5.0) 3.4g/dL (3.4-5.0) Lipase 179U/L (73-393) Urine Collection Type Void Urine Color Yellow Urine Clarity Clear Urine pH 6.0 Urine Specific [place] 1.020 Urine Protein Negativemg/dL (NEG-TRACE) Urine Glucose (UA) Negativemg/dL (NEG) Urine Ketones (Stick) Negativemg/dL (NEG) Urine Blood Negative (NEG) Urine Nitrite Negative (NEG) Urine Bilirubin Negative (NEG) Urine Urobilinogen Dipstick 1.0mg/dL (0.2 mg/dL) Urine Leukocyte Esterase Negative (NEG) Urine RBC 1-2/HPF (0-2) Urine WBC Rare/HPF (0-4) Urine Squamous Epithelial Cells Mod/LPF Urine Bacteria Few/HPF (0-FEW) Urine Hyaline Casts Few/HPF Urine Mucus Marked/LPF Urine Opiates Screen Pos (NEG) Urine Methadone Screen Neg (NEG) Urine Barbiturates Neg (NEG) Urine Phencyclidine Screen Neg (NEG) Urine Amphetamine/Methamphetamine Neg (NEG) Urine Benzodiazepines Screen Neg (NEG) Urine Cocaine Screen Neg (NEG) Urine Cannabinoids Screen Neg (NEG) Urine Ethyl Alcohol Neg (NEG) BUN/Creatinine Ratio 6 (6-20) Albumin/Globulin Ratio 1.1 (1.0-1.7) Laboratory Tests Test 12/07/16 04:30 White Blood Count 5.6x10^3/uL (4.0-11.0) Red Blood Count 4.32x10^6/uL (3.50-5.40) Hemoglobin 13.8g/dL (12.0-15.5) Hematocrit 40.8% (36.0-47.0) Mean Corpuscular Volume 95fL (79-100) Mean Corpuscular Hemoglobin 32pg (25-35) Mean Corpuscular Hemoglobin Concent 34g/dL (31-37) Red Cell Distribution Width 14.0% (11.5-14.5) Platelet Count 231x10^3/uL (140-400) Neutrophils (%) (Auto) 77% (31-73) Lymphocytes (%) (Auto) 13% (24-48) Monocytes (%) (Auto) 7% (0-9) Eosinophils (%) (Auto) 2% (0-3) Basophils (%) (Auto) 1% (0-3) Neutrophils # (Auto) 4.3x10^3uL (1.8-7.7) Lymphocytes # (Auto) 0.7x10^3/uL (1.0-4.8) Monocytes # (Auto) 0.4x10^3/uL (0.0-1.1) Eosinophils # (Auto) 0.1x10^3/uL (0.0-0.7) Basophils # (Auto) 0.0x10^3/uL (0.0-0.2) Sodium Level 142mmol/L (136-145) Potassium Level 4.0mmol/L (3.5-5.1) Chloride Level 105mmol/L (98-107) Carbon Dioxide Level 29mmol/L (21-32) Anion Gap 8 (6-14) Blood Urea Nitrogen 5mg/dL (7-20) Creatinine 0.9mg/dL (0.6-1.0) Estimated GFR (Cockcroft-Gault) 67.7 BUN/Creatinine Ratio 6 (6-20) Glucose Level 89mg/dL (70-99) Calcium Level 8.9mg/dL (8.5-10.1) Total Bilirubin 1.2mg/dL (0.2-1.0) Aspartate Amino Transf (AST/SGOT) 106U/L (15-37) Alanine Aminotransferase (ALT/SGPT) 140U/L (14-59) Alkaline Phosphatase 106U/L (46-116) Total Protein 6.5g/dL (6.4-8.2) Albumin 3.4g/dL (3.4-5.0) Albumin/Globulin Ratio 1.1 (1.0-1.7) Medications Current Medications Multi-Ingredient Mouthwash/Gargle (Gi Cocktail Single Dose) 15 ml 1X ONCE SWSW Last administered on 12/06/16 09:00; Start 12/06/16 at 09:00; Stop 12/06/16 at 09:01; Status DC Morphine Sulfate 4 mg 4 mg PRN Q15MIN PRN IV/SQ PAIN GREATER THAN 3/10 Last administered on 12/06/16 09:50; Start 12/06/16 at 09:00; Stop 12/07/16 at 08:59 ; Status DC Sodium Chloride (Iv Sodium Chloride 0.9% 1000ml Bag) 1,000 ml @ 100 mls/hr Q10H IV Last administered on 12/06/16 09:48; Start 12/06/16 at 08:50; Stop at 18:49; Status DC Iohexol (Omnipaque 300 Mg/ml) 75 ml 1X ONCE IV Last administered on 12/06/16 10:53; Start 12/06/16 at 10:45; Stop 12/06/16 at 10:46; Status DC Info (Do NOT chart on this entry -- for MONITORING) 1 each PRN DAILY PRN MC SEE COMMENTS; Start 12/06/16 at 10:45; Stop 12/08/16 at 10:44 Ondansetron HCl (Zofran) 4 mg PRN Q8HRS PRN IV NAUSEA/VOMITING; Start 12/06/16 at 14:00; Stop 12/07/16 at 13:59; Status DC Morphine Sulfate 4 mg 4 mg PRN Q2HR PRN IV PAIN Last administered on 12/06/16 16:26; Start 12/06/16 at 14:00; Stop 12/07/16 at 13:59; Status DC Piperacillin Sod/ Tazobactam Sod/ Sodium Chloride (Zosyn/Iv Sodium Chloride 0.9 % 50ml) 50 ml @ 100 mls/hr 1X ONCE IV Last administered on 12/06/16 15:07; Start 12/06/16 at 14:00; Stop 12/06/16 at 14:29; Status DC Ondansetron HCl (Zofran) 4 mg PRN Q6HRS PRN IV NAUSEA/VOMITING; Start 12/07/16 at 07:00; Stop 12/07/16 at 18:01; Status DC Fentanyl Citrate (Fentanyl 2ml Vial) 25 mcg PRN Q5MIN PRN IV MILD PAIN; Start 12/07/16 at 07:00; Stop 12/07/16 at 18:01; Status DC Fentanyl Citrate (Fentanyl 2ml Vial) 50 mcg PRN Q5MIN PRN IV MODERATE PAIN Last administered on 12/07/16 14:21; Start 12/07/16 at 07:00; Stop 12/07/16 at 18:01; Status DC Morphine Sulfate 1 mg 1 mg PRN Q10MIN PRN IV SEVERE PAIN; Start 12/07/16 at 07: 00; Stop 12/07/16 at 18:01; Status DC Lactated Ringer's (Iv Lactated Ringers) 1,000 ml @ 30 mls/hr Q24H IV Last administered on 12/07/16 13:56; Start 12/07/16 at 07:00; Stop 12/07/16 at 18:59 ; Status DC Lidocaine HCl 2 ml PRN 1X PRN ID PRIOR TO IV START; Start 12/07/16 at 07:00; Stop 12/07/16 at 18:02; Status DC Hydromorphone HCl (Dilaudid) 0.5 mg PRN Q10MIN PRN IV SEV PAIN, Second choice; Start 12/07/16 at 07:00; Stop 12/07/16 at 18:02; Status DC Prochlorperazine Edisylate 5 mg 5 mg PACU PRN PRN IV NAUSEA, MRX1; Start at 07:00; Stop 12/07/16 at 18:02; Status DC Piperacillin Sod/ Tazobactam Sod/ Sodium Chloride (Zosyn/Iv Sodium Chloride 0.9 % 50ml) 50 ml @ 100 mls/hr Q6HRS IV Last administered on 12/07/16 16:56; Start 12/07/16 at 00:00 Dexamethasone Sodium Phosphate (Decadron) 20 mg STK-MED ONCE .ROUTE ; Start at 11:14; Stop 12/07/16 at 11:15; Status DC Ondansetron HCl 4 mg 4 mg STK-MED ONCE .ROUTE ; Start 12/07/16 at 11:14; Stop at 11:15; Status DC Propofol (Diprivan) 20 ml @ As Directed STK-MED ONCE IV ; Start 12/07/16 at 11: 14; Stop 12/07/16 at 11:15; Status DC Lidocaine HCl (Lidocaine HCl 2% Abboject) 100 mg STK-MED ONCE .ROUTE ; Start at 11:14; Stop 12/07/16 at 11:15; Status DC Midazolam HCl (Versed) 2 mg STK-MED ONCE .ROUTE ; Start 12/07/16 at 11:14; Stop 12/07/16 at 11:15; Status DC Fentanyl Citrate (Fentanyl 2ml Vial) 100 mcg STK-MED ONCE .ROUTE ; Start at 11:14; Stop 12/07/16 at 11:15; Status DC Rocuronium Rives (Zemuron) 50 mg STK-MED ONCE .ROUTE ; Start 12/07/16 at 11:15 ; Stop 12/07/16 at 11:16; Status DC Famotidine (Pepcid) 20 mg STK-MED ONCE .ROUTE ; Start 12/07/16 at 11:15; Stop at 11:16; Status DC Cellulose 1 each STK-MED ONCE .ROUTE ; Start 12/07/16 at 11:48; Stop 12/07/16 at 11:49; Status DC Iohexol (Omnipaque 300 Mg/ml) 50 ml STK-MED ONCE .ROUTE Last administered on 12:50; Start 12/07/16 at 11:48; Stop 12/07/16 at 11:49; Status DC Bupivacaine HCl/ Epinephrine Bitart (Marcaine-Epi 0.5%-[id number]) 50 ml STK-MED ONCE .ROUTE Last administered on 12/07/16 12:34; Start 12/07/16 at 11:48; Stop 12/07/16 at 11:49; Status DC Fentanyl Citrate (Fentanyl 2ml Vial) 100 mcg STK-MED ONCE .ROUTE ; Start at 12:32; Stop 12/07/16 at 12:33; Status DC Ketorolac Tromethamine (Toradol For Or Only) 60 mg STK-MED ONCE .ROUTE ; Start 12/07/16 at 13:00; Stop 12/07/16 at 13:01; Status DC Glycopyrrolate (Robinul) 1 mg STK-MED ONCE .ROUTE ; Start 12/07/16 at 13:00; Stop 12/07/16 at 13:01; Status DC Neostigmine Methylsulfate 5 mg 5 mg STK-MED ONCE .ROUTE ; Start 12/07/16 at 13: 00; Stop 12/07/16 at 13:01; Status DC Propofol (Diprivan) 20 ml @ As Directed STK-MED ONCE IV ; Start 12/07/16 at 13: 06; Stop 12/07/16 at 13:07; Status DC Desflurane (Suprane) 60 ml STK-MED ONCE IH ; Start 12/07/16 at 13:19; Stop 12/07 at 13:20; Status DC Oxycodone/ Acetaminophen (Percocet 5/325) 1 tab PRN Q4HRS PRN PO MILD PAIN Last administered on 12/07/16 17:06; Start 12/07/16 at 13:30 Oxycodone/ Acetaminophen (Percocet 5/325) 2 tab PRN Q4HRS PRN PO MODERATE/ SEVERE PAIN Last administered on 12/07/16 19:22; Start 12/07/16 at 13:45 Active Scripts Active Reported Cyclobenzaprine Hcl 10 Mg Tablet 1 Tab PO BID Hydrocodone-Ibuprofen 7.5-200 (Hydrocodone/Ibuprofen) 1 Each Tablet 1 Tab PO PRN Q6HRS PRN Vitals/I & O Vital Sign - Last 24 Hours 12/07/16 12/07/16 12/07/16 12/07/16 07:00 08:10 10:50 11:12 Temp 98.6 98.2 97.8 98.6 98.2 97.8 Pulse 67 69 68 Resp 16 17 20 B/P 126/69 113/82 147/71 Pulse Ox 99 96 95 O2 Delivery Room Air Room Air Room Air Room Air 12/07/16 12/07/16 12/07/16 12/07/16 13:33 13:33 13:48 14:03 Pulse 63 63 58 Resp 20 20 20 B/P 160/85 153/78 147/73 Pulse Ox 99 64 95 O2 Delivery Simple Mask Mask Room Air Room Air O2 Flow Rate 10 10 12/07/16 12/07/16 12/07/16 12/07/16 14:05 14:11 14:18 14:21 Temp 97.1 97.1 Pulse 55 Resp 20 20 20 B/P 116/70 Pulse Ox 93 96 96 O2 Delivery Room Air Room Air Room Air Room Air 12/07/16 12/07/16 12/07/16 12/07/16 15:00 15:15 15:30 16:00 Temp 97.4 97.4 Pulse 57 58 53 73 Resp 16 B/P 141/83 111/77 114/66 114/62 Pulse Ox 95 O2 Delivery Room Air 12/07/16 12/07/16 12/07/16 12/07/16 16:30 17:06 17:30 18:06 Pulse 60 70 B/P 126/67 123/73 Pulse Ox 95 95 O2 Delivery Room Air Room Air O2 Flow Rate 10.0 12/07/16 12/07/16 12/07/16 12/07/16 19:00 19:22 20:00 20:25 Temp 97.6 97.6 Pulse 60 Resp 16 B/P 122/74 Pulse Ox 96 O2 Delivery Room Air Room Air Room Air Room Air Intake and Output 12/06/16 12/06/16 12/07/16 15:00 23:00 07:00 Intake Total 480 ml 450 ml Balance 480 ml 450 ml MARIANNE PEÑALOZA MD Dec 07, 2016 22:49
[2016-12-08] MEDS: OXYCODONE/APAP 5/325 TABLET. PO PRN ×2 (00:48→05:58)
[2016-12-08] MEDS: PIPERACILLIN/TAZOBACTAM 3.375 GM in IV NORMAL SALINE 50ML 50 ML IV SCH ×2 (00:48→05:58)
[2016-12-08 04:30] VITALS: BP 131/75
[2016-12-08 05:38] LABS: ALBUMIN 3.4 g/dL (3.4-5.0); DIRECT BILIRUBIN 0.3 mg/dL (0.0-0.2); TOTAL BILIRUBIN 0.6 mg/dL (0.2-1.0); TOTAL PROTEIN 6.8 g/dL (6.4-8.2)
[2016-12-08 07:00] VITALS: BP 125/75
--- NOTE | 2016-12-08 09:59 | PDOC ---
PROGRESS NOTES Subjective Subjective doing well Objective Objective Vital Signs Date Time Temp Pulse Resp B/P Pulse Ox O2 Delivery O2 Flow Rate FiO2 12/08/16 08:05 Room Air 12/08/16 07:00 98.0 55 20 125/75 99 98.0 12/07/16 18:06 10.0 Intake and Output 12/08/16 07:00 Intake Total 2685 ml Output Total 210 ml Balance 2475 ml Intake Oral 1460 ml IV Total 1225 ml Output Urine Total 200 ml Estimated Blood Loss 10 ml # Voids 3 Physical Exam Abdomen: Soft, No tenderness Assessment Assessment Problems Medical Problems: (1) Abdominal pain Status: Acute Plan Plan of Care Ok to discharge, script in chart, FU with me in 2 weeks in office Comment Review of Relevant I have reviewed the following items rena (where applicable) has been applied. Labs Laboratory Tests Test 12/07/16 04:30 12/08/16 03:50 White Blood Count 5.6x10^3/uL (4.0-11.0) Red Blood Count 4.32x10^6/uL (3.50-5.40) Hemoglobin 13.8g/dL (12.0-15.5) Hematocrit 40.8% (36.0-47.0) Mean Corpuscular Volume 95fL (79-100) Mean Corpuscular Hemoglobin 32pg (25-35) Mean Corpuscular Hemoglobin Concent 34g/dL (31-37) Red Cell Distribution Width 14.0% (11.5-14.5) Platelet Count 231x10^3/uL (140-400) Neutrophils (%) (Auto) 77% (31-73) Lymphocytes (%) (Auto) 13% (24-48) Monocytes (%) (Auto) 7% (0-9) Eosinophils (%) (Auto) 2% (0-3) Basophils (%) (Auto) 1% (0-3) Neutrophils # (Auto) 4.3x10^3uL (1.8-7.7) Lymphocytes # (Auto) 0.7x10^3/uL (1.0-4.8) Monocytes # (Auto) 0.4x10^3/uL (0.0-1.1) Eosinophils # (Auto) 0.1x10^3/uL (0.0-0.7) Basophils # (Auto) 0.0x10^3/uL (0.0-0.2) Sodium Level 142mmol/L (136-145) Potassium Level 4.0mmol/L (3.5-5.1) Chloride Level 105mmol/L (98-107) Carbon Dioxide Level 29mmol/L (21-32) Anion Gap 8 (6-14) Blood Urea Nitrogen 5mg/dL (7-20) Creatinine 0.9mg/dL (0.6-1.0) Estimated GFR (Cockcroft-Gault) 67.7 BUN/Creatinine Ratio 6 (6-20) Glucose Level 89mg/dL (70-99) Calcium Level 8.9mg/dL (8.5-10.1) Total Bilirubin 1.2mg/dL (0.2-1.0) 0.6mg/dL (0.2-1.0) Aspartate Amino Transf (AST/SGOT) 106U/L (15-37) 50U/L (15-37) Alanine Aminotransferase (ALT/SGPT) 140U/L (14-59) 107U/L (14-59) Alkaline Phosphatase 106U/L (46-116) 99U/L (46-116) Total Protein 6.5g/dL (6.4-8.2) 6.8g/dL (6.4-8.2) Albumin 3.4g/dL (3.4-5.0) 3.4g/dL (3.4-5.0) Albumin/Globulin Ratio 1.1 (1.0-1.7) Direct Bilirubin 0.3mg/dL (0.0-0.2) Laboratory Tests Test 12/08/16 03:50 Total Bilirubin 0.6mg/dL (0.2-1.0) Direct Bilirubin 0.3mg/dL (0.0-0.2) Aspartate Amino Transf (AST/SGOT) 50U/L (15-37) Alanine Aminotransferase (ALT/SGPT) 107U/L (14-59) Alkaline Phosphatase 99U/L (46-116) Total Protein 6.8g/dL (6.4-8.2) Albumin 3.4g/dL (3.4-5.0) Medications Current Medications Multi-Ingredient Mouthwash/Gargle (Gi Cocktail Single Dose) 15 ml 1X ONCE SWSW Last administered on 12/06/16 09:00; Start 12/06/16 at 09:00; Stop 12/06/16 at 09:01; Status DC Morphine Sulfate 4 mg 4 mg PRN Q15MIN PRN IV/SQ PAIN GREATER THAN 3/10 Last administered on 12/06/16 09:50; Start 12/06/16 at 09:00; Stop 12/07/16 at 08:59 ; Status DC Sodium Chloride (Iv Sodium Chloride 0.9% 1000ml Bag) 1,000 ml @ 100 mls/hr Q10H IV Last administered on 12/06/16 09:48; Start 12/06/16 at 08:50; Stop at 18:49; Status DC Iohexol (Omnipaque 300 Mg/ml) 75 ml 1X ONCE IV Last administered on 12/06/16 10:53; Start 12/06/16 at 10:45; Stop 12/06/16 at 10:46; Status DC Info (Do NOT chart on this entry -- for MONITORING) 1 each PRN DAILY PRN MC SEE COMMENTS; Start 12/06/16 at 10:45; Stop 12/08/16 at 10:44 Ondansetron HCl (Zofran) 4 mg PRN Q8HRS PRN IV NAUSEA/VOMITING; Start 12/06/16 at 14:00; Stop 12/07/16 at 13:59; Status DC Morphine Sulfate 4 mg 4 mg PRN Q2HR PRN IV PAIN Last administered on 12/06/16 16:26; Start 12/06/16 at 14:00; Stop 12/07/16 at 13:59; Status DC Piperacillin Sod/ Tazobactam Sod/ Sodium Chloride (Zosyn/Iv Sodium Chloride 0.9 % 50ml) 50 ml @ 100 mls/hr 1X ONCE IV Last administered on 12/06/16 15:07; Start 12/06/16 at 14:00; Stop 12/06/16 at 14:29; Status DC Ondansetron HCl (Zofran) 4 mg PRN Q6HRS PRN IV NAUSEA/VOMITING; Start 12/07/16 at 07:00; Stop 12/07/16 at 18:01; Status DC Fentanyl Citrate (Fentanyl 2ml Vial) 25 mcg PRN Q5MIN PRN IV MILD PAIN; Start 12/07/16 at 07:00; Stop 12/07/16 at 18:01; Status DC Fentanyl Citrate (Fentanyl 2ml Vial) 50 mcg PRN Q5MIN PRN IV MODERATE PAIN Last administered on 12/07/16 14:21; Start 12/07/16 at 07:00; Stop 12/07/16 at 18:01; Status DC Morphine Sulfate 1 mg 1 mg PRN Q10MIN PRN IV SEVERE PAIN; Start 12/07/16 at 07: 00; Stop 12/07/16 at 18:01; Status DC Lactated Ringer's (Iv Lactated Ringers) 1,000 ml @ 30 mls/hr Q24H IV Last administered on 12/07/16 13:56; Start 12/07/16 at 07:00; Stop 12/07/16 at 18:59 ; Status DC Lidocaine HCl 2 ml PRN 1X PRN ID PRIOR TO IV START; Start 12/07/16 at 07:00; Stop 12/07/16 at 18:02; Status DC Hydromorphone HCl (Dilaudid) 0.5 mg PRN Q10MIN PRN IV SEV PAIN, Second choice; Start 12/07/16 at 07:00; Stop 12/07/16 at 18:02; Status DC Prochlorperazine Edisylate 5 mg 5 mg PACU PRN PRN IV NAUSEA, MRX1; Start at 07:00; Stop 12/07/16 at 18:02; Status DC Piperacillin Sod/ Tazobactam Sod/ Sodium Chloride (Zosyn/Iv Sodium Chloride 0.9 % 50ml) 50 ml @ 100 mls/hr Q6HRS IV Last administered on 12/08/16 05:58; Start 12/07/16 at 00:00 Dexamethasone Sodium Phosphate (Decadron) 20 mg STK-MED ONCE .ROUTE ; Start at 11:14; Stop 12/07/16 at 11:15; Status DC Ondansetron HCl 4 mg 4 mg STK-MED ONCE .ROUTE ; Start 12/07/16 at 11:14; Stop at 11:15; Status DC Propofol (Diprivan) 20 ml @ As Directed STK-MED ONCE IV ; Start 12/07/16 at 11: 14; Stop 12/07/16 at 11:15; Status DC Lidocaine HCl (Lidocaine HCl 2% Abboject) 100 mg STK-MED ONCE .ROUTE ; Start at 11:14; Stop 12/07/16 at 11:15; Status DC Midazolam HCl (Versed) 2 mg STK-MED ONCE .ROUTE ; Start 12/07/16 at 11:14; Stop 12/07/16 at 11:15; Status DC Fentanyl Citrate (Fentanyl 2ml Vial) 100 mcg STK-MED ONCE .ROUTE ; Start at 11:14; Stop 12/07/16 at 11:15; Status DC Rocuronium [place] (Zemuron) 50 mg STK-MED ONCE .ROUTE ; Start 12/07/16 at 11:15 ; Stop 12/07/16 at 11:16; Status DC Famotidine (Pepcid) 20 mg STK-MED ONCE .ROUTE ; Start 12/07/16 at 11:15; Stop at 11:16; Status DC Cellulose 1 each STK-MED ONCE .ROUTE ; Start 12/07/16 at 11:48; Stop 12/07/16 at 11:49; Status DC Iohexol (Omnipaque 300 Mg/ml) 50 ml STK-MED ONCE .ROUTE Last administered on 12:50; Start 12/07/16 at 11:48; Stop 12/07/16 at 11:49; Status DC Bupivacaine HCl/ Epinephrine Bitart (Marcaine-Epi 0.5%-1:[id number]) 50 ml STK-MED ONCE .ROUTE Last administered on 12/07/16 12:34; Start 12/07/16 at 11:48; Stop 12/07/16 at 11:49; Status DC Fentanyl Citrate (Fentanyl 2ml Vial) 100 mcg STK-MED ONCE .ROUTE ; Start at 12:32; Stop 12/07/16 at 12:33; Status DC Ketorolac Tromethamine (Toradol For Or Only) 60 mg STK-MED ONCE .ROUTE ; Start 12/07/16 at 13:00; Stop 12/07/16 at 13:01; Status DC Glycopyrrolate (Robinul) 1 mg STK-MED ONCE .ROUTE ; Start 12/07/16 at 13:00; Stop 12/07/16 at 13:01; Status DC Neostigmine Methylsulfate 5 mg 5 mg STK-MED ONCE .ROUTE ; Start 12/07/16 at 13: 00; Stop 12/07/16 at 13:01; Status DC Propofol (Diprivan) 20 ml @ As Directed STK-MED ONCE IV ; Start 12/07/16 at 13: 06; Stop 12/07/16 at 13:07; Status DC Desflurane (Suprane) 60 ml STK-MED ONCE IH ; Start 12/07/16 at 13:19; Stop 12/07 at 13:20; Status DC Oxycodone/ Acetaminophen (Percocet 5/325) 1 tab PRN Q4HRS PRN PO MILD PAIN Last administered on 12/08/16 05:58; Start 12/07/16 at 13:30 Oxycodone/ Acetaminophen (Percocet 5/325) 2 tab PRN Q4HRS PRN PO MODERATE/ SEVERE PAIN Last administered on 12/08/16t 00:48; Start 12/07/16 at 13:45 Active Scripts Active Reported Cyclobenzaprine Hcl 10 Mg Tablet 1 Tab PO BID Hydrocodone-Ibuprofen 7.5-200 (Hydrocodone/Ibuprofen) 1 Each Tablet 1 Tab PO PRN Q6HRS PRN Vitals/I & O Vital Sign - Last 24 Hours 12/07/16 12/07/16 12/07/16 12/07/16 10:50 11:12 13:33 13:33 Temp 98.2 97.8 98.2 97.8 Pulse 69 68 63 Resp 17 20 20 B/P 113/82 147/71 160/85 Pulse Ox 96 95 99 O2 Delivery Room Air Room Air Simple Mask Mask O2 Flow Rate 10 10 12/07/16 12/07/16 12/07/16 12/07/16 13:48 14:03 14:05 14:11 Pulse 63 58 Resp 20 20 20 B/P 153/78 147/73 Pulse Ox 64 95 93 O2 Delivery Room Air Room Air Room Air Room Air 12/07/16 12/07/16 12/07/16 12/07/16 14:18 14:21 15:00 15:15 Temp 97.1 97.4 97.1 97.4 Pulse 55 57 58 Resp 20 20 16 B/P 116/70 141/83 111/77 Pulse Ox 96 96 95 O2 Delivery Room Air Room Air Room Air 12/07/16 12/07/16 12/07/16 12/07/16 15:30 16:00 16:30 17:06 Pulse 53 73 60 B/P 114/66 114/62 126/67 Pulse Ox 95 O2 Delivery Room Air 12/07/16 12/07/16 12/07/16 12/07/16 17:30 18:06 19:00 19:22 Temp 97.6 97.6 Pulse 70 60 Resp 16 B/P 123/73 122/74 Pulse Ox 95 96 O2 Delivery Room Air Room Air O2 Flow Rate 10.0 12/07/16 12/07/16 12/08/16 12/08/16 20:00 22:52 00:48 01:45 Temp 98.0 98.0 Pulse 71 Resp 16 B/P 134/80 Pulse Ox 96 O2 Delivery Room Air Room Air Room Air Room Air 12/08/16 12/08/16 12/08/16 12/08/16 04:30 05:58 07:00 07:00 Temp 97.9 98.0 97.9 98.0 Pulse 59 55 Resp 18 20 B/P 131/75 125/75 Pulse Ox 97 99 O2 Delivery Room Air Room Air Room Air Room Air 12/08/16 08:05 O2 Delivery Room Air Intake and Output 12/07/16 12/07/16 12/08/16 15:00 23:00 07:00 Intake Total 1050 ml 460 ml 1175 ml Output Total 210 ml Balance 840 ml 460 ml 1175 ml PRABHU HENRY MD Dec 08, 2016 09:59
--- NOTE | 2016-12-09 13:52 | PATHOLOGY ---
PATHOLOGY REPORT * * * * * * * * FINAL DIAGNOSIS: Gallbladder, cholecystectomy: - Chronic cholecystitis. - Cholelithiasis. (SKM:; d/t: 12/09/16) REPORT ELECTRONICALLY SIGNED BY: Elias Cardoso M.D. DATE/TIME: 12/09/2016 13:51 * * * * * * * * GROSS PATHOLOGY: Received in formalin labeled "Nikko Veloz, gallbladder and contents," is a 7.5 x 3.1 x 1.0 cm, intact gallbladder with wrinkled, shiny, pale graytanpink serosal surfaces. Opening the gallbladder reveals a green, velvety, bile-stained mucosa and an average wall thickness of 0.2 cm. Calculi are present and no masses are noted grossly. Pot Filler sections from the body and fundus are submitted along with the proximal margin in cassette A1. (SNA; 12/08/2016) INITIAL CPT CODE(S): A; 00618 Professional services performed [place] [place] [address] Technical services performed by [facility] at [address] [place] [address] [address], [place] [address]. SPECIMEN(S) RECEIVED: A.Gallbladder and contents CLINICAL HISTORY: Cholelithiasis, cholecystitis PATIENT: NIKKO VELOZ /AGE: 1 1970 (Age: 46) PATIENT #: [id number] ALT CASE #: SPECIMEN COLLECTION DATE: 12/07/2016 SPECIMEN RECEIVED DATE: 12/07/2016 [facility] - [address] [place] [address] - PHONE: [phone] * * * END OF REPORT * * *
== END 2016-12-08 09:57 | disposition home or self-care (01) ==
LOC: ER 08:21 → 5 SOUTH 13:00 → INTOOBSV 13:00
PROVIDERS: ADMIT Internal Medicine; ATTEND Internal Medicine
DX: K81.0 Acute cholecystitis (principal); K82.9 Disease of gallbladder, unspecified; Z82.49 Family history of ischemic heart disease and other diseases of the circulatory system
CPT/HCPCS: 36415; 47563; 74022; 74177; 74300; 76705; 80048; 80053; 80076; 81001; 82553; 83690; 85007; 85027; 85610; 85730; 88304; 93005; 96365; 96366; 96375; 96376; 99285; 99406; C1769; C1782; G0378; G0481; J1100; J1885; J2250; J2270; J2405; J2543; J2704; J2710; J3010; J3490; J7030; J7120; Q9967; S0028; G0379

== ENCOUNTER → 2016-12-23 | Outpatient (CLI) | payer OTHER ==
[2016-12-08 07:00] VITALS: BP 125/75
[~2016-12-23] MED LIST changes: +CYCL10TA2 PO; +MULT-246 PO; +NABU750T PO
--- NOTE | 2016-12-23 11:41 | RAD ---
Exam performed: Nuclear medicine PET scan. 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 Date of service: 12/23/16. Comparison: Nuclear medicine PET scan from 05/01 and 06/24/2016. Technique: Patient was injected 12.7 mCi of F-18 FDG intravenously and delayed whole-body images are obtained from the skull base to the mid thighs. Corresponding noncontrast enhanced images are obtained for the purposes of attenuation correction and anatomical correlation. Patient's fasting blood glucose level at the time of injection measures 97.0 mg/dL. Findings: No abnormal hypermetabolic activity seen in the brain. Mild increased activity is seen in the nose which measures up to 4.4 (previously measuring up to 5) no abnormal mass lesion is seen. There is opacification of the left maxillary sinus with mildly increased activity with SUV value of 3.5, likely on an inflammatory or infectious basis. No abnormal adenopathy or mass lesion seen in the neck. Previously seen hypermetabolic right hilar lymph node is no longer visualized on the current study. Mildly increased hypermetabolic activity in the right nipple is unchanged. No hypermetabolic pulmonary nodule or other mediastinal adenopathy seen. There is faint increased activity in the right lower abdominal wall with a probable small ventral abdominal wall defect. The SUV value in this area measures up to 3.5. This was previously identified however the metabolic activity appears slightly increased. No additional abnormality is seen in the abdomen or pelvis. Impression: Mild increased hypermetabolic activity in the nose measures 4.4 and is slightly improved. Previously seen hypermetabolic right hilar lymph node is no longer visualized.
== END | disposition home or self-care (01) ==
LOC: PETSC 07:23
PROVIDERS: ATTEND Radiology Radiation Oncology
DX: C85.90 Non-Hodgkin lymphoma, unspecified, unspecified site (principal)
CPT/HCPCS: 78815; A9552

== ENCOUNTER → 2017-04-26 | Outpatient (CLI) | payer OTHER ==
[~2017-04-26] MED LIST changes: +CONTRAST GIVEN MC PRN; +IOHEXOL 300 MG/ML 75 ML VIAL IV ONE
--- NOTE | 2017-04-26 09:25 | RAD ---
Indication nasal lymphoma. Status post treatment. Follow-up. Noncontrast imaging through the neck was performed. The examination is limited in that no IV contrast was administered. No similar imaging is available. Note is made of a PET/CT examination 12/23/2016. The visualized brain appears unremarkable. The visualized lung apices appear clear. There is mucosal thickening involving the right maxillary sinus and minimal thickness on the left. Bilateral antral windows are noted. There is partial opacification of the left sphenoid sinus. In the visualized mediastinum there is no significant adenopathy. No significant adenopathy is seen at the thoracic inlet. A discrete nasal mass is not seen. Significant adenopathy in the neck is not apparent but again evaluation for same is somewhat limited as no IV contrast was administered. IMPRESSION: Suspect sinusitis. Mild mucosal thickening is seen in several of the paranasal sinuses. No dominant mass or significant adenopathy seen although evaluation for same is somewhat limited in that no IV contrast was administered PQRS Compliance Statement: One or more of the following individualized dose reduction techniques were utilized for this examination: 1. Automated exposure control 2. Adjustment of the mA and/or kV according to patient size 3. Use of iterative reconstruction technique
--- NOTE | 2017-04-26 09:37 | RAD ---
Indication nasal lymphoma. Status post treatment. Contrast imaging through the chest was performed. Approximately 75 cc of Omnipaque 300 was administered intravenously. No prior dedicated CT imaging of the chest is available. Note is made of a PET/CT examination of the chest 12/23/2016. Imaging through the upper abdomen is unremarkable. There is no significant axillary adenopathy. No significant hilar or mediastinal adenopathy is seen. The thoracic aorta appears unremarkable. No acute parenchymal infiltrate is seen. There is no dominant soft tissue mass. No evidence of metastatic disease is seen. IMPRESSION: Unremarkable CT chest. No significant adenopathy. No evidence of metastatic disease PQRS Compliance Statement: One or more of the following individualized dose reduction techniques were utilized for this examination: 1. Automated exposure control 2. Adjustment of the mA and/or kV according to patient size 3. Use of iterative reconstruction technique
--- NOTE | 2017-04-27 13:42 | RAD ---
Indication nasal lymphoma. Status post treatment. Contrast imaging through the chest was performed. Approximately 75 cc of Omnipaque 300 was administered intravenously. No prior dedicated CT imaging of the chest is available. Note is made of a PET/CT examination of the chest 2016. Imaging through the upper abdomen is unremarkable. There is no significant axillary adenopathy. No significant hilar or mediastinal adenopathy is seen. The thoracic aorta appears unremarkable. No acute parenchymal infiltrate is seen. There is no dominant soft tissue mass. No evidence of metastatic disease is seen. IMPRESSION: Unremarkable CT chest. No significant adenopathy. No evidence of metastatic disease PQRS Compliance Statement: One or more of the following individualized dose reduction techniques were utilized for this examination: 1. Automated exposure control 2. Adjustment of the mA and/or kV according to patient size 3. Use of iterative reconstruction technique MTDD
== END | disposition home or self-care (01) ==
LOC: CT 08:06
PROVIDERS: ATTEND Radiology Radiation Oncology
DX: C85.90 Non-Hodgkin lymphoma, unspecified, unspecified site (principal); R91.8 Other nonspecific abnormal finding of lung field
CPT/HCPCS: 70486; 70490; 71260

== ENCOUNTER → 2017-05-06 | Outpatient (CLI) | payer OTHER ==
[~2017-05-06] MED LIST changes: -CONTRAST GIVEN MC PRN; -IOHEXOL 300 MG/ML 75 ML VIAL IV ONE
--- NOTE | 2017-05-06 13:05 | KCIC ---
Bilateral digital screening mammograms: Reason for examination: Routine screening. Comparison is made to previous studies dated back to 02/28/2014. The skin and nipples show no abnormalities. No abnormal axillary lymph nodes are seen. The breast parenchyma is heterogeneously dense. (Breast density: Category C.) There appears to be a nodular density in the superior left breast on the oblique view possibly at the 11:30 B position. Further evaluation with coned compression views and ultrasound is recommended. There are no other new dominant masses, suspicious calcifications or architectural distortion. Impression: Nodular density in the superior left breast on oblique view. Further evaluation with additional coned compression views and ultrasound is recommended. Your patient's mammogram demonstrates that she has dense breast tissue (breast density category C or D), which could hide abnormalities, and if she has other risk factors for breast cancer that have been identified, she might benefit from supplemental screening tests that may be suggested by you as her ordering physician. Dense breast tissue, in and of itself, is a relatively common condition. Therefore, this information is not provided to cause undue concern, but rather to raise your awareness and to promote discussion with your patient regarding the presence of other risk factors, in addition to dense breast tissue. Your patient's mammography results will be sent to her. BI-RAD Category 0: Incomplete. Additional imaging is recommended. "Our facility is accredited by the [employer] Mammography Program." This patient's information has been entered into a reminder system for the patient to be notified with the results of her examination and a target date for the next mammogram. Electronically signed by: Lorna Dow MD (05/06/2017 1:02 PM) [id number]
== END | disposition home or self-care (01) ==
LOC: KCIC MAMMO 12:14
PROVIDERS: ATTEND Obstetrics & Gynecology
DX: Z12.31 Encounter for screening mammogram for malignant neoplasm of breast (principal)
CPT/HCPCS: G0202; 77067

== ENCOUNTER → 2017-05-19 | Outpatient (CLI) | payer OTHER ==
--- NOTE | 2017-05-19 13:32 | KCIC ---
DATE: 05/19/2017 EXAM: DIGITAL DIAGNOSTIC LT, BREAST LEFT HISTORY: Suspicious screening study COMPARISON: 05/06/2017 The breast parenchyma is heterogeneously dense, which could reduce sensitivity of mammography. Breast parenchyma level C. FINDINGS: Spot compression CC and oblique views of the area of concern in the left breast demonstrate no discrete mass. There are heterogeneous fibroglandular shadows similar to those seen on previous studies. Left breast ultrasound, 05/19/2017: A targeted ultrasound exam of the superior aspect of the left breast was performed in the area of concern noted on the screening mammograms. There are heterogeneous fibroglandular shadows. No breast mass is seen. IMPRESSION: There is no mammographic evidence of malignancy in the left breast. Routine mammographic surveillance is suggested. BI-RADS CATEGORY: 2 BENIGN FINDING(S) RECOMMENDED FOLLOW-UP: 12M 12 MONTH FOLLOW-UP PQRS compliance statement: Patient information was entered into a reminder system with a target due date for the next mammogram. Mammography is a sensitive method for finding small breast cancers, but it does not detect them all and is not a substitute for careful clinical examination. A negative mammogram does not negate a clinically suspicious finding and should not result in delay in biopsying a clinically suspicious abnormality. "Our facility is accredited by the [employer] Mammography Program."
== END | disposition home or self-care (01) ==
LOC: KCIC MAMMO 12:39
PROVIDERS: ATTEND Obstetrics & Gynecology
DX: R92.8 Other abnormal and inconclusive findings on diagnostic imaging of breast (principal)
CPT/HCPCS: 76641; G0206; 77065

== ENCOUNTER → 2018-10-19 | Outpatient (CLI) | payer OTHER ==
[~2018-10-19] MED LIST changes: +CONTRAST GIVEN. MC PRN; -HYDR-79 PO; +HYDROCODONE-IB1 EAC3 PO; +IOHEXOL 300 MG/ML 100ML VIAL. IV ONE
--- NOTE | 2018-10-19 16:32 | KCIC ---
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 Technique: Noncontrast axial cross sectional scanning of the head was performed. After IV infusion of 70 of Omnipaque 300, repeat axial cross-sectional scanning of the head was performed. Findings: No acute intracranial hemorrhage or midline shift or mass-effect or hydrocephalus or extra-axial fluid collection is seen. No focal hypodense area or sulci effacement is seen to indicate an acute infarct or edema radiographically. No intracranial contrast enhancing lesion is seen. No lytic process is seen. No opacification of the mastoid sinuses or the middle ear cavities is seen. Impression: No significant intracranial abnormality is seen by CT. No intracranial contrast enhancing lesion is seen. Electronically signed by: Dar Link MD (10/19/2018 4:29 PM) [email or web address]
--- NOTE | 2018-10-19 16:43 | KCIC ---
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 TECHNIQUE: After IV infusion of 80 cc of Omnipaque 300, helical CT scanning of the chest was performed. Multiplanar 2-D reconstructions were generated. PQRS compliance Statement One or more of the following individualized dose reduction techniques were utilized for this study: 1. Automated exposure control 2. Adjustment of the mA and/or kV according to patient size 3. Use of iterative reconstruction technique COMPARISON: April 26, 2017. FINDINGS: No enlarged axillary or mediastinal or hilar lymphadenopathy is evident. No focal aneurysmal dilatation or dissection of the thoracic aorta is seen. The heart size is normal and no pericardial effusion is seen. No lung mass or lung nodule or lung infiltrate is seen. No pleural effusion or pneumothorax is evident. The proximal bronchial tree is patent. No lytic process is seen. No adrenal mass is evident. IMPRESSION: No acute abnormality is evident. No lung metastatic disease or enlarged thoracic lymphadenopathy is evident. Electronically signed by: Dar Link MD (10/19/2018 4:39 PM) [email or web address]
--- NOTE | 2018-10-19 16:58 | KCIC ---
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 Follow-up study. COMPARISON: April 26, 2017. TECHNIQUE: After IV infusion of 70 cc of Omnipaque 300, helical CT scanning of the soft tissues of the neck from the base of the skull down to the lung apices was performed. Multiplanar 2-D reconstructions were generated. PQRS compliance Statement One or more of the following individualized dose reduction techniques were utilized for this study: 1. Automated exposure control 2. Adjustment of the mA and/or kV according to patient size 3. Use of iterative reconstruction technique FINDINGS: No soft tissue mass or enlarged cervical lymphadenopathy is evident. The parotid and submandibular salivary glands are unremarkable. The palatine tonsils and adenoids and sublingual tonsils are unremarkable. The epiglottis and aryepiglottic folds and preepiglottic fat space and true cords and false cords are unremarkable. The thyroid gland is unremarkable. No parapharyngeal soft tissue mass or prevertebral soft tissue mass/abscess is seen. Postoperative changes of the upper medial wall of both maxillary sinuses is seen. There is chronic circumferential mucosal thickening of the right maxillary sinus which is unchanged. There is chronic circumferential mucosal thickening of the left maxillary sinus. There is an increase in mucosal thickening posteriorly within the left maxillary sinus which measures 7 mm in thickness. This does not represent an air-fluid level since it extends through the surgical defect. Postoperative changes of the ethmoid sinuses is seen bilaterally. The ethmoid sinuses are clear. There is chronic moderate mucosal thickening of the left sphenoid sinus which is unchanged. There is a new finding of moderate mucosal thickening of the floor of the right sphenoid sinus which measures 6 mm in thickness. The left frontal sinus is aplastic. The right frontal sinus is small but clear. No lytic process is seen. No nasal septal perforation is seen. No nasal passageway soft tissue mass is evident. IMPRESSION: Since the previous study, there is a new finding of moderate mucosal thickening of the floor of the right sphenoid sinus and increase in mucosal thickening of the posterior wall of the left maxillary sinus. No lytic process is evident. No nasal passageway soft tissue mass is evident. No enlarged cervical lymphadenopathy. Electronically signed by: Dar Link MD (10/19/2018 4:55 PM) [place] [id number]
== END | disposition home or self-care (01) ==
LOC: KCIC CT 14:03
PROVIDERS: ATTEND Otolaryngology
DX: C86.0 Extranodal NK/T-cell lymphoma, nasal type (principal); J34.89 Other specified disorders of nose and nasal sinuses
CPT/HCPCS: 70470; 70491; 71260; Q9967

== ENCOUNTER → 2019-02-14 | Outpatient (CLI) | payer OTHER ==
[~2019-02-14] MED LIST changes: -CONTRAST GIVEN. MC PRN; -IOHEXOL 300 MG/ML 100ML VIAL. IV ONE
--- NOTE | 2019-02-14 15:41 | KCIC ---
Bilateral digital screening mammograms: Reason for examination: Routine screening. Comparison is made to previous studies dated 05/06/2017 and 05/03/2016. Interpretation was made with the benefit of CAD. The skin and nipples show no abnormalities. No abnormal axillary lymph nodes are seen. The breast parenchyma is heterogeneously dense. (Breast density: Category C.) There are no dominant masses, suspicious calcifications or architectural distortion. Impression: No evidence of malignancy. Recommend routine screening. Your patient's mammogram demonstrates that she has dense breast tissue (breast density category C or D), which could hide abnormalities, and if she has other risk factors for breast cancer that have been identified, she might benefit from supplemental screening tests that may be suggested by you as her ordering physician. Dense breast tissue, in and of itself, is a relatively common condition. Therefore, this information is not provided to cause undue concern, but rather to raise your awareness and to promote discussion with your patient regarding the presence of other risk factors, in addition to dense breast tissue. Your patient's mammography results will be sent to her. BI-RAD Category 2: Benign. "Our facility is accredited by the [employer] Mammography Program." This patient's information has been entered into a reminder system for the patient to be notified with the results of her examination and a target date for the next mammogram. Electronically signed by: Lorna Dow MD (02/14/2019 3:38 PM) [id number]
== END | disposition home or self-care (01) ==
LOC: KCIC MAMMO 13:55
PROVIDERS: ATTEND Obstetrics & Gynecology
DX: Z12.31 Encounter for screening mammogram for malignant neoplasm of breast (principal)
CPT/HCPCS: 77067

== ENCOUNTER → 2019-04-27 | Outpatient (CLI) | payer OTHER ==
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
== END | disposition home or self-care (01) ==
LOC: KCIC CT 15:18
PROVIDERS: ATTEND Nurse Practitioner
DX: S22.20XA Unspecified fracture of sternum, initial encounter for closed fracture (principal); K57.30 Diverticulosis of large intestine without perforation or abscess without bleeding; I70.0 Atherosclerosis of aorta; Z90.49 Acquired absence of other specified parts of digestive tract; X58.XXXA Exposure to other specified factors, initial encounter; Y93.89 Activity, other specified; Y92.89 Other specified places as the place of occurrence of the external cause; Y99.8 Other external cause status
CPT/HCPCS: 71250; 74150

== ENCOUNTER → 2019-06-14 | Outpatient (CLI) | payer OTHER ==
[~2019-06-14] MED LIST changes: +CONTRAST GIVEN. MC PRN; +IOHEXOL 300 MG/ML 100ML VIAL. IV ONE
--- NOTE | 2019-06-14 16:24 | RAD ---
Clinical indications: Lymphoma.. Technique: Noncontrast axial cross sectional scanning of the head was performed. After IV infusion of 70 of of Omnipaque 300, repeat axial cross-sectional scanning of the head was performed. COMPARISON: October 19, 2018. Findings: No acute intracranial hemorrhage or midline shift or mass-effect or hydrocephalus or extra-axial fluid collection is seen. No focal hypodense area or sulci effacement is seen to indicate an acute infarct or edema radiographically. No intracranial contrast enhancing lesion is seen. No opacification of the mastoid sinuses or the middle ear cavities is seen. Mucosal thickening and air-fluid levels are seen within both maxillary sinuses and within the left sphenoid sinus. This has been seen previously. There is mucosal thickening of the superior aspect of the ethmoid sinuses bilaterally which was seen previously. Impression: No significant intracranial abnormality is seen by CT. No intracranial contrast enhancing lesion is seen. Chronic sinusitis. Electronically signed by: Dar Link MD (06/14/2019 4:21 PM) [id number]
--- NOTE | 2019-06-14 16:51 | RAD ---
CT study of the neck and chest with contrast Clinical indications: Lymphoma. COMPARISON: Chest CT dated April 27, [address] dated October 19, 2018. TECHNIQUE: After IV infusion of 70 mL Omnipaque 300, helical CT scanning of the soft tissues of the neck and chest were performed from the base of the skull down through the adrenal glands. PQRS compliance Statement One or more of the following individualized dose reduction techniques were utilized for this study: 1. Automated exposure control 2. Adjustment of the mA and/or kV according to patient size 3. Use of iterative reconstruction technique NECK CT: The parotid and submandibular salivary glands are unremarkable. There is streaking artifact through the thyroid gland. This could potentially obscure a lesion. On the previous chest CT, a small nodule was present within the posterior right lobe of the thyroid gland measuring 12 mm. In today's study, there is question of a small hypodense nodule in the same location which is unchanged. Otherwise no thyroid gland mass is seen. No enlarged cervical lymphadenopathy is evident. No soft tissue mass is evident. The true cords and false cords and preepiglottic fat space and epiglottis and aryepiglottic folds are normal. No abnormal enlargement of the palatine tonsils or adenoids is seen. No soft tissue abscess or prevertebral soft tissue swelling is evident. Again seen is mucosal thickening of the maxillary sinuses. There has been an increase in air-fluid levels of both maxillary sinuses from the prior study. Again seen is a thickening and air-fluid level of the left sphenoid sinus which is unchanged. There is mucosal thickening of the roof of both ethmoid sinuses which is unchanged. No lytic process is seen. IMPRESSION: Chronic sinusitis. Increase in air-fluid levels of both maxillary sinuses. No cervical lymphadenopathy or soft tissue mass is evident. CHEST CT: No enlarged thoracic lymphadenopathy is evident. No focal aneurysmal dilatation of the thoracic aorta is seen. The heart size is normal and no pericardial effusion is seen. No consolidative lung infiltrate or lung mass is evident. No new lung nodule is seen. No pleural effusion or pneumothorax is evident. The proximal bronchial tree is patent. No lytic process is seen. Healing subacute fractures of the left eighth ninth and 10th ribs is seen laterally. IMPRESSION: No acute abnormality. Healing subacute left eighth and ninth and 10th rib fractures. No thoracic lymphadenopathy. Electronically signed by: Dar Link MD (06/14/2019 4:48 PM) [id number]
== END | disposition home or self-care (01) ==
LOC: CT 14:00
PROVIDERS: ATTEND Otolaryngology
DX: C86.0 Extranodal NK/T-cell lymphoma, nasal type (principal); J32.8 Other chronic sinusitis; J34.89 Other specified disorders of nose and nasal sinuses
CPT/HCPCS: 70470; 70491; 71260; Q9967